=== PATIENT | male | born 1985 | race African-American/Black ===

== ENCOUNTER 2019-12-01 22:58 | Emergency (ER) | payer SELFPAY ==
[2019-12-01] MEDS ORDERED: IBUPROFEN 400 MG TAB ONE (23:27)
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
[2019-12-02 00:59] VITALS: TEMP 98
[2019-12-02 01:01] VITALS: BP 160/85; O2SAT 99
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
== END 2019-12-02 00:35 | disposition home or self-care (01) ==
LOC: ER 22:58
DX: R07.9 Chest pain, unspecified (principal); T22.111A Burn of first degree of right forearm, initial encounter; F17.210 Nicotine dependence, cigarettes, uncomplicated; V49.49XA Driver injured in collision with other motor vehicles in traffic accident, initial encounter
CPT/HCPCS: 71046; 99283

== ENCOUNTER 2024-09-04 09:59 | Inpatient (IN) | payer OTHER ==
[2024-09-04] MEDS ORDERED: NA CHLORIDE 0.9% 2,000 ML ONE (10:06)
--- NOTE | 2024-09-04 10:46 | RAD REPORT ---
EXAMINATION: ONE VIEW CHEST XR CLINICAL INDICATION: AMS TECHNIQUE: Frontal chest projection is submitted. Examination is limited by patient positioning and t echnique. COMPARISON: 12/02/2019 FINDINGS: Mild interstitial prominence is seen, greatest in the left upper lobe. No focal consolidation develop ing bacterial pneumonia is seen. The heart is upper limit of normal in size. No displaced fractures identified. IMPRESSION: Mild interstitial prominence greatest in left upper lobe, likely related to infection.
[2024-09-04 10:51] LABS: Albumin 3.6 g/dL (3.4-5.0); Albumin/Globulin Ratio 0.8 (1.1-1.8); Anion Gap 10.9 mEq/L (5.0-15.0); Bilirubin Total 0.8 mg/dL (0.2-1.0); Globulin 4.6 g/dL (2.3-3.5); Protein, Total 8.2 g/dL (6.4-8.2)
[2024-09-04 10:53] LABS: Potassium 3.9 mEq/L (3.5-5.1)
[2024-09-04] MEDS ORDERED: LORazepam 2 MG/ML VIAL ONE ×3 (11:24→15:57)
[2024-09-04 11:28] LABS: Specific Gravity 1.018 (1.005-1.030); Sqamous Epithelial <5 /HPF (None Seen); Urine Bacteria <20 /HPF (<20); Urine Bilirubin NEGATIVE (Negative); Urine Blood 3+ (OVER) (Negative); Urine Clarity Extremely Turbid (Clear); Urine Color Yellow (Yellow); Urine Culture Reflex Order NOT NEEDED; Urine Glucose NEGATIVE (Negative); Urine Ketones NEGATIVE (Negative); Urine Microscopic Reflex YN ORDER UMIC; Urine Mucus Slight /HPF (None Seen); Urine Nitrite NEGATIVE (Negative); Urine Protein 1+ (Negative); Urine RBC 21-50 /HPF (None Seen); Urine Urobilinogen Normal (Normal); Urine WBC <5 /HPF (<5); Urine pH 5.5 (5.0-7.0)
--- NOTE | 2024-09-04 11:51 | RAD REPORT ---
EXAM: CT brain without contrast HISTORY: AMS COMPARISON: 10/24/2015 TECHNIQUE: Multiple contiguous axial images were obtained and a CT of the brain without contrast. Sag ittal and coronal reformats were performed. One or more of the following dose reduction techniques were used: Automated exposure control, adjust ment of the mA and/or kV according to patient size, and/or iterative reconstruction. FINDINGS: No evidence of hydrocephalus, intracranial hemorrhage, or extra-axial fluid collection. The brain is normal in morphology. No evidence of midline shift or areas of brain edema. The calvarium is intact. The visualized paranasal sinuses and mastoid air cells are essentially clear . IMPRESSION: No evidence of acute intracranial abnormality.
--- NOTE | 2024-09-04 11:52 | RAD REPORT ---
EXAMINATION: CT ABDOMEN AND PELVIS WITHOUT CONTRAST CLINICAL INDICATION: vomiting/diarrhea/AMS/hypotension TECHNIQUE: CT abdomen and pelvis was performed, without IV contrast, as per department protocol. Axia l, sagittal and coronal reconstructions were obtained. One or more of the following dose reduction techniques were used: Automated exposure control, adjustment of the mA and kV according to the patien t size, and iterative reconstruction. Unless otherwise specified, incidental findings do not require dedicated imaging follow-up. COMPARISON: No prior exam. FINDINGS: The lack of intravenous contrast limits the sensitivity of this exam for evaluation of solid visceral organs, vascular structures, and retroperitoneum. LOWER CHEST: The visualized lung bases are clear. LIVER:Mild fatty liver is present. No focal lesion or biliary dilatation is seen. Grossly unremarka ble gallbladder. SPLEEN: Normal size. No focal lesion. PANCREAS: No mass, ductal dilation, or leticia-pancreatic fluid. ADRENALS: Normal; no mass. KIDNEYS AND URETERS: Normal size and contour. No hydronephrosis. URINARY BLADDER: Normal contour. GASTROINTESTINAL TRACT: No evidence of bowel obstruction, significant free fluid, free air or abscess . APPENDIX: Normal appendix. LYMPH NODES: No lymphadenopathy. MUSCULOSKELETAL: No acute or suspicious osseous abnormality. ADDITIONAL FINDINGS: None. IMPRESSION: No acute or concerning abnormalities in the abdomen or pelvis, with evaluation limited by lack of IV contrast. Fatty liver.
[2024-09-04] MEDS ORDERED: NA CHLORIDE 0.9% 250 ML ONE (12:08)
[2024-09-04] MEDS ORDERED: CEFTRIAXONE 1000 MG/VIAL ONE (12:08)
[2024-09-04] MEDS ORDERED: AZITHROMYCIN 500 MG INJ IVPB ONE (12:08)
--- NOTE | 2024-09-04 13:55 | EDPHYS ---
Physician Documentation [facility] Name: Aries Randolph Jr Age: 39 yrs Sex: Male : 1985 Arrival Date: 09/04/2024 Time: 09:59 Bed 3 Private MD: ED Physician Sarabjit Polk HPI: 09/04 11:30 This 39 yrs old Black Male presents to ER via EMS with complaints of Altered Mental rn Status. 11:30 The patient presents with decreased responsiveness. Onset: The symptoms/episode rn began/occurred 2 day(s) ago. Possible causes: unknown. Current symptoms: In the emergency department the patient's symptoms are unchanged from the initial presentation. It is unknown whether or not the patient has had similar symptoms in the past. EMS reports called out by family member for altered mental status and decreased responsiveness. Family member reported flulike symptoms and nausea and vomiting with diarrhea for the last 24 hours with decreased responsiveness today. No seizure activity. Normal glucose per EMS.. Historical: - Allergies: 11:01 oranges; kc6 - Home Meds: 10:04 Unable to obtain [Active]; kc6 - PMHx: 10:04 Hypertensive disorder; kc6 11:01 Diabetes mellitus; Congestive heart failure; kc6 - PSHx: 10:04 Unable to Obtain; kc6 - Immunization history:: Adult Immunizations unknown. - Infectious Disease History:: Denies. - Social history:: Smoking status: unknown. - Unable to obtain history due to: altered mental status. ROS: 11:30 Unable to obtain ROS due to altered mental status, rn Exam: 11:30 Constitutional: This is a well developed, well nourished patient who is awake, rn noncooperative Head/Face: Normocephalic, atraumatic. ENT: Dry mucous membranes Cardiovascular: Tachycardic, regular. Respiratory: Mild tachypnea Abdomen/GI: Soft, mid abdominal tenderness without distention or discoloration MS/ Extremity: Pulses equal, no cyanosis. Neurovascular intact. Full, normal range of motion. Equal circumference. Neuro: Awake, opens eyes, answers some questions, seems selective, moves all 4 extremities with equal strength 12:35 ECG was reviewed by the Attending Physician. rn Vital Signs: 10:02 BP 120 / 62; Pulse 115; Resp 18 S; Temp 100.1(O); Pulse Ox 96% on R/A; Weight 124.28 kg kc6 (M); 10:20 BP 90 / 58; kc6 11:00 BP 110 / 65; Pulse 106; Resp 36 S; Pulse Ox 98% on R/A; kc6 11:47 BP 108 / 73; Pulse 109; Resp 32; Temp 100.6(TE); Pulse Ox 93% on R/A; kc6 12:05 BP 97 / 74; Pulse 100; Resp 21 S; Pulse Ox 91% on R/A; kc6 13:54 BP 122 / 88; Pulse 110; Resp 30 S; Pulse Ox 96% on 3 lpm NC; kc6 14:08 BP 125 / 93; Pulse 112; Resp 28 S; Temp 100.5(TE); Pulse Ox 95% on 3 lpm NC; kc6 15:08 BP 122 / 88; Pulse 110; Resp 30 S; Pulse Ox 96% on 3 lpm NC; kc6 17:06 BP 116 / 90; Pulse 109; Resp 25 S; Temp 102.8(R); Pulse Ox 94% on 3 lpm NC; kc6 17:34 BP 102 / 82; Pulse 110; Resp 27 S; Pulse Ox 100% on 3 lpm NC; kc6 19:43 BP 137 / 76; Pulse 108; Resp 21; Temp 101.2; Pulse Ox 99% on 3 lpm NC; ha1 19:50 BP 113 / 51; Pulse 109; Resp 23; Pulse Ox 98% on 3 lpm NC; ay Procedures: 16:48 Lumbar Puncture: Patient placed in left lateral decubitus position. Prepped with rn Betadine. Draped using sterile technique. Collected 5 ml's of clear fluid. Sample sent to lab. Patient tolerated well. Lumbar Puncture: Opening pressure was low, fluid check 10 to 15 minutes to collect.. Procedural sedation: Pre-procedure assessment: ASA physical classification: I - healthy, no underlying organic disease, Airway assessment: able to maintain airway, can open mouth without difficulty, Monitoring during procedure: gambling monitor, continuous pulse oximetry, nurse at bedside at all times, Medications employed: Ativan, 0.5 mg(s), Ketamine, 100 mg(s), Post-procedure assessment: Respiratory status: even and unlabored, a reversal agent was not used. MDM: 10:00 Medical Screening Exam initiated rn 13:54 Differential Diagnosis: pneumonia, volume depletion, Colitis, enteritis. Data reviewed: rn vital signs, nurses notes, lab test result(s), radiologic studies, CT scan, plain films, and as a result, I will admit patient. Consideration of Admission/Observation Patient was admitted/placed on observation. Escalation of care including admission/observation considered. Counseling: I had a detailed discussion with the patient and/or guardian regarding the historical points, exam findings, and any diagnostic results supporting the discharge/admit diagnosis, lab results, radiology results, the need for further work-up and treatment in the hospital. Response to treatment: the patient's symptoms have markedly improved after treatment, and as a result, I will admit patient. 13:55 ED course: More alert, patient speaks to family in room, elevated lactate, possible rn pneumonia. . 16:50 Management of patient was discussed with the following: Hospitalist: Discussed case rn with hospitalist, they request lumbar puncture to rule out meningitis or encephalopathy. ED course: I personally spent 35 minutes engaged in work directly related to the individual patient's care. This does not include any time spent performing procedures. The patient has been deemed critically ill because of altered mental status, encephalopathy requiring sepsis workup, lumbar puncture, multiple visits with family, review of previous charts and organization of admission to the hospital.. 19:07 ED course: Patient improved, sepsis secondary to influenza/viral source. Sepsis rn reevaluation completed.. 09/04 10:02 Order name: Blood Culture Adult (2) rn 09/04 10:02 Order name: CBC with Diff; Complete Time: 16:32 rn 09/04 10:02 Order name: CMP; Complete Time: 11:12 rn 09/04 10:02 Order name: Lactate w/ 2H reflex if indic.; Complete Time: 11:12 rn 09/04 10:02 Order name: Protime (+inr) rn 09/04 10:02 Order name: Ptt, Activated rn 09/04 10:02 Order name: Urinalysis w/ reflexes; Complete Time: 11:55 rn 09/04 10:56 Order name: Ghost Lactate-NO COLLECT Timer; Complete Time: 13:02 EDMS 09/04 11:12 Order name: ETOH Level; Complete Time: 13:02 rn 09/04 16:35 Order name: Flu; Complete Time: 17:32 [facility] 09/04 16:35 Order name: SARS RAPID; Complete Time: 17:32 [facility] 09/04 16:38 Order name: Stool Culture [facility] 09/04 16:38 Order name: C.difficile [facility] 09/04 16:48 Order name: Fluid Cell Count,Body 09/04 16:48 Order name: Body Fluid Culture 09/04 18:12 Order name: Body Fluid Cell Count; Complete Time: 19:08 EDAL 09/04 10:02 Order name: Chest Single View XRAY; Complete Time: 11:12 rn 09/04 10:02 Order name: CT Head Brain wo Cont; Complete Time: 11:55 rn 09/04 11:37 Order name: Abdomen ; Complete Time: 11:55 EDAL 09/04 10:02 Order name: Accucheck; Complete Time: 10:20 rn 09/04 10:02 Order name: Cardiac monitoring; Complete Time: 10:20 rn 09/04 10:02 Order name: EKG - Nurse/Tech; Complete Time: 10:20 rn 09/04 10:02 Order name: IV Saline Lock - Large Bore; Complete Time: 10:20 rn 09/04 10:02 Order name: Labs collected and sent; Complete Time: 10:20 rn 09/04 10:02 Order name: O2 Per Protocol; Complete Time: 10:04 rn 09/04 10:02 Order name: O2 Sat Monitoring; Complete Time: 10:04 rn 09/04 10:02 Order name: Vital Signs; Complete Time: 10:04 rn 09/04 10:35 Order name: Labs - recollect needed: recollect green top; Complete Time: 11:47 bd 09/04 14:54 Order name: Restraint:Non-Violent; Complete Time: 14:57 rn 09/04 16:32 Order name: Labs - recollect needed: recollect lavender top; Complete Time: 17:04 bd EC:35 Rate is 111 beats/min. Rhythm is regular. QRS [place] is Normal. [place] interval is normal. rn QRS interval is normal. QT interval is normal. No Q waves. T waves are Normal. No ST changes noted. Clinical impression: Sinus tachycardia. Interpreted by me. Reviewed by me. Administered Medications: 10:02 CANCELLED (Duplicate Order): ns 0.9% (30 ml/kg) 30 ml/kg IV at bolus once; Sepsis rn Protocol; to be given as a bolus over 90 minutes 11:00 Drug: NS 0.9% IV 1000 ml IV at 1000 ml once; to be given as a bolus over 60 minutes kc6 Route: IV; Rate: 1000 ml; Site: right antecubital; 12:00 Follow up: Response: No adverse reaction; IV Status: Completed infusion; IV Intake: kc6 1000ml 11:00 Drug: NS 0.9% IV 1000 ml IV at 1000 ml once; to be given as a bolus over 60 minutes kc6 Route: IV; Rate: 1000 ml; Site: right antecubital; 12:00 Follow up: Response: No adverse reaction; IV Status: Completed infusion; IV Intake: kc6 1000ml 11:29 Drug: Ativan IVP 0.5 mg IVP once Route: IVP; Site: right antecubital; kc6 11:47 Follow up: Response: No adverse reaction; Anxiety decreased; RASS: Drowsy (-1) kc6 12:17 Drug: Rocephin IV 1 grams IV at calculated rate once; Given slow IV push per pharmacy kc6 instructions Route: IV; Rate: calculated rate; Site: right antecubital; 12:45 Follow up: Response: No adverse reaction; IV Status: Completed infusion; IV Intake: [id number] 12:17 Drug: Zithromax IVPB 500 mg IVPB once over 1 hrs; mix in 250 mL NS Route: IVPB; Infused kc6 Over: 1 hrs; Site: right antecubital; 13:17 Follow up: Response: No adverse reaction; IV Status: Completed infusion; IV Intake: kc6 250ml 13:51 Drug: Ativan IVP 0.5 mg IVP once Route: IVP; Site: right antecubital; ko1 14:12 Follow up: Response: No adverse reaction; Anxiety decreased; RASS: Drowsy (-1) kc6 16:04 Drug: Ativan IVP 0.5 mg IVP once Route: IVP; Site: right antecubital; kc6 16:30 Follow up: Response: No adverse reaction; Anxiety decreased; RASS: Drowsy (-1) kc6 16:04 Drug: Ketamine IVP 0.2 mg/kg IVP once; Mix in 50 mL NS IV over 10 minutes. Maximum Dose kc6 10 mg {Note: a total of 75mg IV was administered per Dr. Polk in the [id number].} Route: IVP; Site: right antecubital; 16:30 Follow up: Response: No adverse reaction; Anxiety decreased; RASS: Moderate sedation kc6 (-3) 17:07 Drug: Acetaminophen WI Suppository 650 mg WI once Route: WI; kc6 17:30 Follow up: Response: No adverse reaction kc6 19:40 Drug: Acetaminophen WI Suppository 325 mg WI once Route: WI; ha1 19:55 Follow up: Response: No adverse reaction ay Disposition Summary: 09/04/24 13:55 Hospitalization Ordered Notes: Hospitalization Status: Inpatient Admission rn Provider: Kt Polk rn Condition: Stable rn Problem: new rn Symptoms: have improved rn Bed/Room Type: Standard rn Location: Intensive Care Unit(09/04/24 16:47) bd Room Assignment: 1-(09/04/24 16:47) bd Diagnosis - Altered mental status, unspecified rn - Diarrhea, unspecified rn - Pneumonia, unspecified organism rn Forms: - Medication Reconciliation Form rn - SBAR form rn - Leadership Thank You Letter rn Signatures: Dispatcher [employer] EDMS Rajwinder Orozco bd Sarabjit Polk MD MD rn Attema, Lee, MANAGER LONG TERM CARE-C MANAGER LONG TERM CARE-Cla1 Lima Trivedi, RN RN ha1 Meliza Merino RN RN [id number] Lisa Conde, RN RN ko1 Khushboo Davies RN ay Corrections: (The following items were deleted from the chart) 10:02 10:02 NS 0.9% IV (30 ml/kg) 30 ml/kg IV at bolus once; Sepsis Protocol; to be given as rn a bolus over 90 minutes ordered. rn 10:02 10:02 BLOOD CULTURE*+BA.LAB.BRZ ordered. EDMS EDMS 10:02 10:02 CBC+H.LAB.BRZ ordered. EDMS EDMS 10:02 10:02 COMPREHENSIVE METABOLIC PANEL+C.LAB.BRZ ordered. EDMS EDMS 10:02 10:02 LACTATE+C.LAB.BRZ ordered. EDMS EDMS 10:02 10:02 PROTIME (+INR)+COAG.LAB.BRZ ordered. EDMS EDMS 10:02 10:02 PTT, ACTIVATED+COAG.LAB.BRZ ordered. EDMS EDMS 10:02 10:02 Urinalysis+U.LAB.BRZ ordered. EDMS EDMS 10:02 10:02 Chest Single View+RAD.RAD.BRZ ordered. EDMS EDMS 10:02 10:02 Head Brain Wo Cont+CT.RAD.BRZ ordered. EDMS EDMS 10:02 10:02 Abdomen Pelvis W Con+CT.RAD.BRZ ordered. EDMS EDMS 11:02 10:04 Allergies: Unable to obtain; kc6 kc6 11:13 11:13 ETHANOL+C.LAB.BRZ ordered. EDMS EDMS 16:35 16:35 Influenza Screen (A \T\ B)+BA.LAB.BRZ ordered. EDMS EDMS 16:35 16:35 SARS-COV-2 Antigen Rapid+I.LAB.BRZ ordered. EDMS EDMS 16:38 16:38 Stool Culture+BA.LAB.BRZ ordered. EDMS EDMS 16:38 16:38 C.difficile GDH Ag \T\ Toxin AB+LAB.BRZ ordered. EDMS EDMS 16:47 13:55 Telemetry/MedSurg (Inpatient) rn bd 16:47 13:55 rn bd
--- NOTE | 2024-09-04 13:55 | ER ---
Nurse's Notes [facility] Name: Aries Randolph Jr Age: 39 yrs Sex: Male : 1985 Arrival Date: 09/04/2024 Time: 09:59 Bed 3 Private MD: Diagnosis: Altered mental status, unspecified;Diarrhea, unspecified;Pneumonia, unspecified organism Presentation: 09/04 10:02 Chief complaint: EMS states: they were toned out by for flu like symptoms for a kc6 few days with n/v/d and AMS over the last 24hrs. Coronavirus screen: At this time, the client does not indicate any symptoms associated with coronavirus-19. Ebola Screen: No symptoms or risks identified at this time. Initial Sepsis Screen: Does the patient meet any 2 criteria? Altered Mental Status. HR > 90 bpm. Does the patient have a suspected source of infection? No. Patient's initial sepsis screen is negative. Risk Assessment: Do you want to hurt yourself or someone else? Patient reports no desire to harm self or others. Onset of symptoms was September 04, 2024. 10:02 Method Of Arrival: EMS: [facility] kc6 10:02 Acuity: SALOME 2 kc6 Historical: - Allergies: 11:01 oranges; kc6 - Home Meds: 10:04 Unable to obtain [Active]; kc6 - PMHx: 10:04 Hypertensive disorder; kc6 11:01 Diabetes mellitus; Congestive heart failure; kc6 - PSHx: 10:04 Unable to Obtain; kc6 - Immunization history:: Adult Immunizations unknown. - Infectious Disease History:: Denies. - Social history:: Smoking status: unknown. - Unable to obtain history due to: altered mental status. Screenin:21 [facility] ED Fall Risk Assessment (Adult) History of falling in the last 3 months, kc6 including since admission No falls in past 3 months (0 pts) Confusion or Disorientation Yes (5 pts) Intoxicated or Sedated No (0 pts) Impaired Gait No (0 pts) Mobility Assist Device Used No (0 pt) Altered Elimination No (0 pt) Score/Fall Risk Level 3 or more points = High Risk Oriented to surroundings, Maintained a safe environment, Educated pt \T\ family on fall prevention, incl call for assistance when getting out of bed. Abuse screen: Denies threats or abuse. Denies injuries from another. Nutritional screening: No deficits noted. Tuberculosis screening: No symptoms or risk factors identified. Assessment: 10:00 General: Appears distressed, uncomfortable, obese, unkempt, well developed, Behavior is kc6 agitated, restless. Pain: Unable to use pain scale. Patient is disoriented. Neuro: Level of Consciousness is confused, Oriented to none. Cardiovascular: Capillary refill < 3 seconds Rhythm is sinus tachycardia. Respiratory: Airway is patent Trachea midline Respiratory effort is even, unlabored, Respiratory pattern is regular, symmetrical. GI: Abdomen is round Last BM was September 04, 2024. at 11:03. Parent/caregiver reports the patient having diarrhea, nausea, vomiting. : No signs and/or symptoms were reported regarding the genitourinary system. EENT: No signs and/or symptoms were reported regarding the EENT system. Derm: No signs and/or symptoms reported regarding the dermatologic system. Skin is intact, is healthy with good turgor, Skin is pink, warm \T\ dry. Musculoskeletal: No signs and/or symptoms reported regarding the musculoskeletal system. Circulation, motion, and sensation intact. Capillary refill < 3 seconds, Range of motion: intact in all extremities. 11:00 Reassessment: No changes from previously documented assessment. Patient and/or family kc6 updated on plan of care and expected duration. Pain level reassessed. 12:00 Reassessment: No changes from previously documented assessment. Patient and/or family kc6 updated on plan of care and expected duration. Pain level reassessed. 12:15 Reassessment: pt is awake, A\T\O to self and place but not time and situation. kc6 13:00 Reassessment: No changes from previously documented assessment. Patient and/or family kc6 updated on plan of care and expected duration. Pain level reassessed. 13:30 Reassessment: pt is grabbing and kicking at staff, attempting to get out bed while kc6 being cleaned of incontinence. Meghan, SANDRITA at [facility], RN at bedside. MD made aware. 13:45 Reassessment: pt appears to be be getting increasingly agitated and thrashing around in [facility] the bed with and sister at bedside. verbal reassurance given to pt. bed alarm on and pt repositioned in the bed. MD made aware. 14:00 Reassessment: No changes from previously documented assessment. Patient and/or family kc6 updated on plan of care and expected duration. Pain level reassessed. 14:15 Reassessment: Shanna Souza () [phone]. kc6 15:00 Reassessment: No changes from previously documented assessment. Patient and/or family kc6 updated on plan of care and expected duration. Pain level reassessed. 16:04 Reassessment: Patient appears in no apparent distress at this time. No changes from kc6 previously documented assessment. Patient and/or family updated on plan of care and expected duration. Pain level reassessed. 17:06 Reassessment: Patient appears in no apparent distress at this time. No changes from kc6 previously documented assessment. Patient and/or family updated on plan of care and expected duration. Pain level reassessed. 17:22 Reassessment: attempted to call report to ICU. per Gina Santacruz RN they have to kc move a pt out before his bed is ready. 17:52 Reassessment: attempted to call report to ICU. per Omi, they are still in the process kc6 of moving out a pt to accept this one. sage, RN made aware. 18:00 Reassessment: Missy slab depiler operator states that they are having issues running Blue top ss and that they will need a recollect. Asked if phlebotomy could come attempt to obtain, but phlebotomy stated that they would not be able to as they had a difficult time obtaining CBC. 18:06 Reassessment: Patient appears in no apparent distress at this time. No changes from kc6 previously documented assessment. Patient and/or family updated on plan of care and expected duration. Pain level reassessed. 18:30 Reassessment: nurse to nurse report given to Gina Santacruz RN in the ICU. kc6 19:00 Reassessment: report given to SANDRITA Soriano \T\ SANDRITA Amato. informed that pt is pending kc6 recollect on blue top and cdiff collection. verbalized understanding. 19:05 General: Appears uncomfortable, ill, obese, unkempt, Behavior is agitated, restless, ay uncooperative. 19:05 Pain: Unable to use pain scale. Patient is disoriented. FLACC scale score is 0 out of ay 10. Neuro: Level of Consciousness is confused, lethargic, Oriented to none. Cardiovascular: Capillary refill < 3 seconds Patient's skin is warm and dry. Rhythm is sinus tachycardia. Respiratory: Airway is patent Trachea midline Respiratory effort is even, unlabored, Respiratory pattern is regular, symmetrical. GI: Abdomen is round obese. : No signs and/or symptoms were reported regarding the genitourinary system. Arevalo in place. EENT: No signs and/or symptoms were reported regarding the EENT system. Derm: Skin is intact, is healthy with good turgor, Skin is normal. Musculoskeletal: No signs and/or symptoms reported regarding the musculoskeletal system. Capillary refill < 3 seconds. Vital Signs: 10:02 BP 120 / 62; Pulse 115; Resp 18 S; Temp 100.1(O); Pulse Ox 96% on R/A; Weight 124.28 kg kc6 (M); 10:20 BP 90 / 58; kc6 11:00 BP 110 / 65; Pulse 106; Resp 36 S; Pulse Ox 98% on R/A; kc6 11:47 BP 108 / 73; Pulse 109; Resp 32; Temp 100.6(TE); Pulse Ox 93% on R/A; kc6 12:05 BP 97 / 74; Pulse 100; Resp 21 S; Pulse Ox 91% on R/A; kc6 13:54 BP 122 / 88; Pulse 110; Resp 30 S; Pulse Ox 96% on 3 lpm NC; kc6 14:08 BP 125 / 93; Pulse 112; Resp 28 S; Temp 100.5(TE); Pulse Ox 95% on 3 lpm NC; kc6 15:08 BP 122 / 88; Pulse 110; Resp 30 S; Pulse Ox 96% on 3 lpm NC; kc6 17:06 BP 116 / 90; Pulse 109; Resp 25 S; Temp 102.8(R); Pulse Ox 94% on 3 lpm NC; kc6 17:34 BP 102 / 82; Pulse 110; Resp 27 S; Pulse Ox 100% on 3 lpm NC; kc6 19:43 BP 137 / 76; Pulse 108; Resp 21; Temp 101.2; Pulse Ox 99% on 3 lpm NC; ha1 19:50 BP 113 / 51; Pulse 109; Resp 23; Pulse Ox 98% on 3 lpm NC; ay ED Course: 10:00 Patient arrived in ED. rn 10:00 Sarabjit Polk MD is Attending Physician. rn 10:04 Triage completed. kc6 10:04 Arm band placed on. kc6 10:04 Patient has correct armband on for positive identification. Placed in gown. Bed in low kc6 position. Call light in reach. Side rails up X2. lead atg developer on. Pulse ox on. NIBP on. Door closed. Noise minimized. Lights dimmed. Warm blanket given. Pillow given. 10:04 Patient maintains SpO2 saturation greater than 95% on room air. kc6 10:16 Inserted saline lock: 20 gauge in right antecubital area, using aseptic technique. ss Blood collected. Flushed with 10 mL NS. 10:20 Meliza Merino RN is Primary Nurse. kc6 10:26 Chest Single View XRAY In Process Unspecified. EDMS 10:56 One-on-one care X 60 minutes. ss 11:01 Repositioned patient. Bath given. Cleaned of incontinence. Linen changed. kc6 11:01 Arevalo cath inserted, using sterile technique, 18 Fr., by ia, balloon inflated, to kc6 gravity drainage, clamped. urine specimen collected. returned clear yellow urine. Patient tolerated poorly. 11:27 ETOH Level Sent. ko1 11:37 Abdomen In Process Unspecified. EDMS 11:39 CT Head Brain wo Cont In Process Unspecified. EDMS 13:30 Repositioned patient. Cleaned of incontinence. Linen changed. kc6 13:54 Kt Polk MD is Hospitalizing Provider. rn 16:04 Provided Education on: Lumbar Puncture, Procedure Consent. kc6 16:04 One-on-one care X 60 minutes. kc6 16:04 Repositioned patient. Cleaned of incontinence. Linen changed. kc6 16:04 Assist provider with lumbar puncture: Set up LP tray. Performed by Sarabjit Polk MD CSF kc6 is clear. Sample collected. Sample sent to lab. Puncture site dressed with 4X4s, Procedure was successful. Patient tolerated well. 17:04 SARS RAPID Sent. kc6 17:04 Flu Sent. kc6 17:04 Fluid Cell Count,Body Sent. kc6 17:04 Body Fluid Culture Sent. kc6 19:00 Report given to SANDRITA Soriano \T\ SANDRITA Amato. kc6 20:19 Patient admitted, IV remains in place. ay Restraints: 13:54 Non-Violent Restraint: Initial order obtained. September 04, 2024 at 13:54 Staff present kc6 on initiation: Meghan Cardona RN \T\ Lisa Conde RN. Indications for initiating restraints: Actions/Behavior observed: repeated attempts to remove/tamper with lines/tubes/IV med devices \T\ wound dressing, repeated attempts to get up from bed/chair w/o assistance, Confused/disoriented, has difficulty remembering/follow instructions, has impaired decision making, has decreased level of consciousness, unable to follow instructions, Less restrictive alternatives attempted: family at bedside, reoriented to location, decrease environmental stimuli, medicated for pain/anxiety, eliminated unnecessary lines/tubes, lines/tubes covered, medications evaluated, placed on bed alarm, trained sitter in room, placed near Nurse station, performed diversional activities, Alternative interventions: Ineffective. Clinical justification for use: line protection, patient safety, Restraint Status: Soft wrist restraint (Right) started Soft wrist restraint (Left) started Family notification/education Family notification: Spouse/SO notified of restraint application. Family notified of restraint application. Education Performed: Education provided to patient/family/spouse/SO/legally authorized pest control service representative regarding the behaviors that necessitated restraint application and the behaviors that the patient shall demonstrate to be released. Circulation: Warm/dry, capillary refill WNL. Skin integrity: Intact, healthy with good turgor. Signs of injury related to restraint: No injuries noted. Range of Motion performed. Level of distress \T\ agitation: agitated/restless, confused, Hydration/Food: PO fluids provided: tolerated well. Elimination/Hygiene: with urinary catheter, diaper changed. Observed behaviors: Attempting to tamper with airway/lines/wounds. unable to follow instructions. confused/disoriented. repeated attempts get out of bed/chair. Less restrictive alternatives attempted: Family at bedside. Reorient patient. Decrease environmental stimuli. Medicated for pain/anxiety. eliminate unnecessary lines/tubes. cover lines/tubes/wounds. bed alarm activated. Alt interventions: Ineffective, Clinical justification for continued use Line protection. patient safety. Criteria to discontinue restraint not met. Restraint status: Side rails up Continued. Soft wrist restraint (Right) Soft wrist restraint (Left) Cognition: poor judgement, poor safety awareness, impulsive, poor attention/concentration, unable to follow commands, short term memory loss, Assuming responsibility of patient is restraints. Time restraints initiated: September 04, 2024 at 13:54 Circumstances for use: Safety of staff. Safety of patient. Line protection Current patient physical, emotional \T\ behavioral status: confused, agitated/restless, unable to follow commands. 15:54 Non-Violent Restraint: Circulation: Warm/dry, capillary refill WNL. Skin integrity: kc6 Intact, healthy with good turgor. Signs of injury related to restraint: No injuries noted. Range of Motion performed. Level of distress \T\ agitation: agitated/restless, confused, Hydration/Food: PO fluids provided: tolerated well. Elimination/Hygiene: bed bath provided, perineal care performed, with urinary catheter, diaper changed. Observed behaviors: unable to follow instructions. confused/disoriented. Less restrictive alternatives attempted: Family at bedside. Reorient patient. Decrease environmental stimuli. Medicated for pain/anxiety. eliminate unnecessary lines/tubes. cover lines/tubes/wounds. bed alarm activated. Alt interventions: Ineffective, Clinical justification for continued use Line protection. patient safety. Criteria to discontinue restraint not met. Restraint status: Side rails up Continued. Soft wrist restraint (Right) Continued. Soft wrist restraint (Left) Continued. Cognition: poor judgement, poor safety awareness, impulsive, poor attention/concentration, unable to follow commands, short term memory loss. 17:54 Non-Violent Restraint: Circulation: Warm/dry, capillary refill WNL. Skin integrity: kc6 Intact, healthy with good turgor. Signs of injury related to restraint: No injuries noted. Range of Motion patient asleep. Level of distress \T\ agitation: confused, patient asleep, Hydration/Food: patient asleep. Elimination/Hygiene: Patient asleep. perineal care performed, with urinary catheter, diaper changed. Observed behaviors: unable to follow instructions. confused/disoriented. Less restrictive alternatives attempted: Family at bedside. Reorient patient. Decrease environmental stimuli. Medicated for pain/anxiety. eliminate unnecessary lines/tubes. cover lines/tubes/wounds. bed alarm activated. Alt interventions: Ineffective, Clinical justification for continued use Line protection. patient safety. Criteria to discontinue restraint not met. Restraint status: Side rails up Continued. Soft wrist restraint (Right) Continued. Soft wrist restraint (Left) Continued. Cognition: poor judgement, poor safety awareness, impulsive, poor attention/concentration, unable to follow commands, short term memory loss. 19:00 Non-Violent Restraint: Transfer of care of a patient in restraints Report given to: farheen Carey RN \T\ Lima Trivedi RN. 19:30 Non-Violent Restraint: Circulation: Warm/dry, capillary refill WNL. Skin integrity: ay Intact, healthy with good turgor. Signs of injury related to restraint: No injuries noted. Range of Motion performed. Level of distress \T\ agitation: agitated/restless, confused, Elimination/Hygiene: perineal care performed, with urinary catheter, diaper changed. Observed behaviors: unable to follow instructions. confused/disoriented. repeated attempts get out of bed/chair. Less restrictive alternatives attempted: Family at bedside. Reorient patient. Decrease environmental stimuli. Medicated for pain/anxiety. eliminate unnecessary lines/tubes. cover lines/tubes/wounds. Alt interventions: Ineffective, Clinical justification for continued use Line protection. patient safety. Criteria to discontinue restraint not met. Restraint status: Side rails up Continued. Soft wrist restraint (Right) Continued. Soft wrist restraint (Left) Continued. Cognition: poor judgement, poor safety awareness, impulsive, poor attention/concentration, unable to follow commands, short term memory loss, Assuming responsibility of patient is restraints. Circumstances for use: Safety of staff. Safety of patient. Line protection Current patient physical, emotional \T\ behavioral status: confused, agitated/restless, unable to follow commands. Administered Medications: 10:02 CANCELLED (Duplicate Order): ns 0.9% (30 ml/kg) 30 ml/kg IV at bolus once; Sepsis rn Protocol; to be given as a bolus over 90 minutes 11:00 Drug: NS 0.9% IV 1000 ml IV at 1000 ml once; to be given as a bolus over 60 minutes kc6 Route: IV; Rate: 1000 ml; Site: right antecubital; 12:00 Follow up: Response: No adverse reaction; IV Status: Completed infusion; IV Intake: kc6 1000ml 11:00 Drug: NS 0.9% IV 1000 ml IV at 1000 ml once; to be given as a bolus over 60 minutes kc6 Route: IV; Rate: 1000 ml; Site: right antecubital; 12:00 Follow up: Response: No adverse reaction; IV Status: Completed infusion; IV Intake: kc6 1000ml 11:29 Drug: Ativan IVP 0.5 mg IVP once Route: IVP; Site: right antecubital; kc6 11:47 Follow up: Response: No adverse reaction; Anxiety decreased; RASS: Drowsy (-1) kc6 12:17 Drug: Rocephin IV 1 grams IV at calculated rate once; Given slow IV push per pharmacy kc6 instructions Route: IV; Rate: calculated rate; Site: right antecubital; 12:45 Follow up: Response: No adverse reaction; IV Status: Completed infusion; IV Intake: [id number] 12:17 Drug: Zithromax IVPB 500 mg IVPB once over 1 hrs; mix in 250 mL NS Route: IVPB; Infused kc6 Over: 1 hrs; Site: right antecubital; 13:17 Follow up: Response: No adverse reaction; IV Status: Completed infusion; IV Intake: kc6 250ml 13:51 Drug: Ativan IVP 0.5 mg IVP once Route: IVP; Site: right antecubital; ko1 14:12 Follow up: Response: No adverse reaction; Anxiety decreased; RASS: Drowsy (-1) kc6 16:04 Drug: Ativan IVP 0.5 mg IVP once Route: IVP; Site: right antecubital; kc6 16:30 Follow up: Response: No adverse reaction; Anxiety decreased; RASS: Drowsy (-1) kc6 16:04 Drug: Ketamine IVP 0.2 mg/kg IVP once; Mix in 50 mL NS IV over 10 minutes. Maximum Dose kc6 10 mg {Note: a total of 75mg IV was administered per Dr. Polk in the [id number].} Route: IVP; Site: right antecubital; 16:30 Follow up: Response: No adverse reaction; Anxiety decreased; RASS: Moderate sedation kc6 (-3) 17:07 Drug: Acetaminophen LA Suppository 650 mg LA once Route: LA; kc6 17:30 Follow up: Response: No adverse reaction kc6 19:40 Drug: Acetaminophen LA Suppository 325 mg LA once Route: LA; ha1 19:55 Follow up: Response: No adverse reaction ay Medication: 20:19 VIS not applicable for this client. ay Intake: 12:00 IV: 1000ml; Total: 1000ml. kc6 12:00 IV: 1000ml; Total: 2000ml. kc6 12:45 IV: 10ml; Total: 2010ml. kc6 13:17 IV: 250ml; Total: 2260ml. kc6 Outcome: 13:55 Decision to Hospitalize by Provider. rn 19:55 Instructed on the need for admit, ay 19:55 Patient left the ED. ay 19:55 Admitted to ICU accompanied by nurse, via stretcher, room 1, with oxygen, on monitor, ay with chart, 19:55 Condition: stable ay Signatures: Dispatcher [employer] EDMS Sarabjit Polk MD MD rn Blanchard, Shelby RN Lima Webster RN RN Meliza Fall RN RN kc6 Oliver, Kathy, RN RN koKhushboo Black RN RN ay Corrections: (The following items were deleted from the chart) 11:02 10:04 Allergies: Unable to obtain; kc6 kc6 11:51 11:47 BP 108 / 73; Pulse 109bpm; Resp 32bpm; Pulse Ox 93% RA; kc6 kc6 14:17 14:08 BP 125 / 93; Pulse 112bpm; Resp 28bpm; Spontaneous; Pulse Ox 95% 3 lpm Nasal kc6 Cannula; kc6 15:01 13:30 Reassessment: pt appears to be be getting increasingly agitate and thrashing kc6 around in the bed with and sister at bedside. verbal reassurance given. made aware. kc6 15:02 13:30 Reassessment: pt appears to be be getting increasingly agitated and thrashing kc6 around in the bed with and sister at bedside. verbal reassurance given to pt. bed alarm on and pt repositioned in the bed. made aware. kc6 15:02 14:58 Reassessment: pt is grabbing and kicking at staff, attempting to get out bed kc6 while being cleaned of incontinence. SANDRITA Christianson at [facility], RN at bedside kc6 15:02 13:30 Reassessment: pt is grabbing and kicking at staff, attempting to get out bed kc6 while being cleaned of incontinence. SANDRITA Christianson at [facility], RN at bedside kc6 17:07 17:06 BP 116 / 90; Pulse 109bpm; Resp 25bpm; Spontaneous; Pulse Ox 94% 3 lpm Nasal kc6 Cannula; kc6 19:33 17:22 Reassessment: attempted to call report to ICU. per SANDRITA Sainz they have to move [facility] a pt out before his bed is ready kc6 19:33 18:30 Reassessment: nurse to nurse report given to SANDRITA Sainz in the ICU [facility] kc 19:34 17:52 Reassessment: attempted to call report to ICU. per Omi, they are still in the [facility] process of moving out a pt to accept this one. charge, rn made aware. [facility] : 20:19 Admitted to ICU accompanied by nurse, via stretcher, with oxygen, on monitor, ay with chart, ay : 20:19 Condition: stable ay ay : 20:19 Instructed on the need for admit, ay ay 20: 20:21 Patient left the ED. ay ay
[2024-09-04 15:47] LABS: Absolute Lymphocytes (CBC) 3.3 K/uL (0.7-4.9); Absolute Monocytes 0.8 K/uL (0.1-1.3); Basophils % 0.3 % (0-1.3); Eosinophils % 0.1 % (0-4.4); Hematocrit 42.7 % (39.6-49.0); Hemoglobin 13.8 g/dL (13.6-17.9); MCH 28.7 pg (27.0-35.0); MCHC 32.3 g/dL (32.0-36.0); MCV 88.8 fL (80-100); MPV 11.9 fL (7.6-11.3); Monocytes % 7.7 % (3.3-12.3); Neutrophils % 58.9 % (41.7-73.7); Nucleated Red Blood Cells % 0.1 % (0-0); Platelets 113 thou/uL (152-406); RBC Red Blood Cell Count 4.81 M/uL (4.33-5.43); Red Cell Distribution Width 13.8 % (12.1-15.2)
[2024-09-04] MEDS ORDERED: KETAMINE HCL IN 0.9 % NACL 50 MG/5 ML SYRINGE IV ONE ×2 (15:56→16:31)
[2024-09-04] MEDS ORDERED: NA CHLORIDE 0.9% 50 ML ONE (15:57)
[2024-09-04] MEDS ORDERED: ACETAMINOPHEN 650MG/RECT SUPP PR ONE (16:53)
--- NOTE | 2024-09-04 16:57 | P.HP ---
Certification for Inpatient Patient admitted to: Inpatient With expected LOS: >2 Midnights Patient will require the following post-hospital care: None Practitioner: I am a practitioner with admitting privileges, knowledge of patient current condition, hospital course, and medical plan of care. Services: Services provided to patient in accordance with Admission requirements found in Title 42 Section 412.3 of the Code of Federal Regulations Patient History Date of Service: 09/05/24 Reason for admission: AMS, pneumonia History of Present Illness: 39-year-old male with history of diabetes, hypertension, CHF presents emergency department chief complaint of altered mental status. His reports that over the course of the last 24 to 36 hours he had been having large amounts of diarrhea, vomiting and been becoming confused. He was incontinent of urine and stool at home and had been becoming progressively more altered throughout the day. For that reason he is brought to the emergency department. When he arrived to the emergency department he was lethargic, confused, oriented x 1-2. His labs were significant for a white blood cell count of 10.1 platelets 113 sodium 135 creatinine 1.75 GFR 50 glucose 179 lactic acid 3.4 AST 386 ALT [address] of the abdomen pelvis was performed which revealed no acute or concerning abnormalities in the abdomen or pelvis, does show fatty liver. CT of the head was negative for acute findings, chest x-ray showed mild interstitial prominence greatest in the left upper lobe likely related to infection. Given patient's significant altered mental status and lack of clear explanation lumbar puncture was also performed, spinal fluid was clear and is pending interpretation. Allergies No Known Allergies Allergy (Unverified 09/04/24 21:55) Home Medications: NK [No Home Meds] 09/04/24 - Past Medical/Surgical History -: CHF -: Diabetes -: Hypertension Psychosocial/ Personal History: Patient lives at home with his , works at [employer] - Family History Family History: Reviewed- Non-Contributory - Social History Alcohol use: No CD- Drugs: No Caffeine use: Yes Place of Residence: Home Review of Systems 10-point ROS is otherwise unremarkable Gastrointestinal: Nausea, Vomiting Neurological: Confusion Physical Examination - Physical Exam General: Confused (Drowsy) HEENT: Atraumatic, PERRLA, Mucous membr. moist/pink, EOMI, Sclerae nonicteric Neck: Supple, 2+ carotid pulse no bruit, No LAD, Without JVD or thyroid abnormality Respiratory: Clear to auscultation bilaterally, Normal air movement Cardiovascular: Regular rate/rhythm, Normal S1 S2 Gastrointestinal: Normal bowel sounds, No tenderness Musculoskeletal: No tenderness Integumentary: No rashes Neurological: Normal gait, Normal speech, Normal strength at 5/5 x4 extr, Normal tone, Normal affect Lymphatics: No axilla or inguinal lymphadenopathy - Studies Laboratory Data (last 24 hrs) 09/04/24 09/04/24 10:16 10:16 WBC 10.10 Hgb 13.8 Hct 42.7 Plt Count 113 L Sodium 135 L Potassium 3.9 BUN 11 Creatinine 1.75 H Glucose 179 H Total Bilirubin 0.8 AST 386 H ALT 152 H Alkaline Phosphatase 78 Assessment and Plan - Plan Assessment: Severe sepsis secondary to influenza A/viral Metabolic encephalopathy secondary to above Acute kidney injury Transaminitis History of diabetes mellitus type 2noncompliant History of CHFunknown EF History of hypertension Plan: Severe sepsis secondary to influenza A/viral Metabolic encephalopathy secondary to above Positive for influenza A Patient with profuse watery diarrhea Confused/agitated Will order Tamiflu but likely unable to take by mouth for now Continue broad-spectrum antibiotics given concern for pneumonia, profuse diarrhea Reevaluate antibiotics after cultures return Pulmonary consult Acute kidney injury Continue IV fluids Nephrology consult Transaminitis CT abdomen pelvis performed negative for acute findings, trend CMP History of diabetes mellitus type 2noncompliant History of CHFunknown EF History of hypertension Patient noncompliant with medication for at least the last few months per DVT PPX: Heparin subcu Code status:full Discharge Plan: Home Plan to discharge in: Greater than 2 days - Advance Directives Does patient have a Living Will: No Does patient have a Durable POA for Healthcare: No - Code Status/Comfort Care Code Status Assessed: Yes (Full code) Critical Care: No Time Spent Managing Pts Care (In Minutes): 62
[2024-09-04] MEDS: VANCOMYCIN 1 GM in NA CHLORIDE 0.9% 250 ML IVPB SCH (17:22)
[2024-09-04] MEDS ORDERED: ONDANSETRON 4 MG/2 ML VIAL IV PRN (17:22)
[2024-09-04] MEDS ORDERED: ACETAMINOPHEN 325 MG TABLET PO PRN (17:22)
[2024-09-04 17:23] LABS: SARS-CoV-2 Antigen CONTROL BLUE LINE VIS/BG OK; SARS-CoV-2 Antigen Rapid Res Negative (Negative)
[2024-09-04] MEDS ORDERED: D10W 125 ML IV PRN (17:30)
[2024-09-04] MEDS ORDERED: GLUCAGON 1 MG/VIAL IM PRN (17:30)
[2024-09-04 18:11] LABS: Appearance CLEAR (CLEAR); Body Fluid Source CSF; Color of Supernate Not Xanthochromic (Not Xantho); Color of fluid Colorless (COLORLESS); Tube # #2
[2024-09-04 18:12] LABS: Body Fluid WBC 20 /mm^3
[2024-09-04 18:50] LABS: Body Fluid Lymphocytes 86 %
[2024-09-04 18:51] LABS: Fluid Total Cells Count 100
[2024-09-04] MEDS ORDERED: ACETAMINOPHEN 325 MG/SUPP PR ONE (19:47)
[2024-09-04] MEDS: LORazepam 2 MG/ML VIAL IV PRN (20:19)
[2024-09-04] MEDS: NA CHLORIDE 0.9% 1,000 ML IV SCH (20:37)
[2024-09-04] MEDS: INSULIN REGULAR (HUMAN) 100 UNIT/ML SQ SCH (20:58)
[2024-09-04] MEDS: METRONIDAZOLE 500mg IVPB 500 MG/100 ML BAG IV SCH (20:59)
[2024-09-04] MEDS: HEPARIN 5000 UNIT/ML 1 ML VIAL SQ SCH (20:59)
[2024-09-04] MEDS: OSELTAMIVIR 75 MG CAP PO SCH (21:00)
[2024-09-04] MEDS: CEFEPIME 2 GM in NA CHLORIDE 0.9% 100 ML IV SCH (21:10)
[2024-09-04 21:11] LABS: PT Prothrombin Time 15.4 SECONDS (9.4-12.5); PTT, Activated Partial Thromb 33.1 SECONDS (24.3-36.9); Protime INR 1.39
[2024-09-04] MEDS: VANCOMYCIN 3 GM in NA CHLORIDE 0.9% 500 ML IVPB ONE (21:43)
[2024-09-04] MEDS: ACETAMINOPHEN 650MG/RECT SUPP PR PRN (23:44)
[2024-09-05] MEDS: DEXMEDETOMIDINE HCL 200 MCG in NA CHLORIDE 0.9% 98 ML IV SCH (00:05)
[2024-09-05] MEDS: KETOROLAC 30 MG/ML INJ IV PRN (01:15)
[2024-09-05] MEDS: FLU (Fluarix Triv) TS24-25(6MOS UP)/PF 45 MCG/0.5 ML Syringe IM ONE (07:45)
--- NOTE | 2024-09-05 07:48 | RAD REPORT ---
EXAMINATION: ONE VIEW CHEST XR CLINICAL INDICATION: PICC Line Insertion TECHNIQUE: Frontal chest projection is submitted. Examination is limited by patient positioning and t echnique. COMPARISON: No prior exam. FINDINGS: Right-sided PICC line is in place with tip in the SVC. Bilateral pulmonary opacities are noted, mild. The heart is upper limit normal in size. IMPRESSION: Right PICC line has tip in the SVC without complication seen.
[2024-09-05] MEDS: Mupirocin NASAL 2 APPL/1 GM TUBE NAS SCH (08:11)
[2024-09-05 08:24] LABS: Absolute Lymphocytes (CBC) 1.5 K/uL (0.7-4.9); Absolute Monocytes 0.5 K/uL (0.1-1.3); Basophils % 0.2 % (0-1.3); Eosinophils % 0.1 % (0-4.4); Hematocrit 38.6 % (39.6-49.0); Hemoglobin 12.6 g/dL (13.6-17.9); Lymphocytes % 16.7 % (15.3-44.8); MCH 28.7 pg (27.0-35.0); MCHC 32.6 g/dL (32.0-36.0); Monocytes % 5.4 % (3.3-12.3); Neutrophils % 77.6 % (41.7-73.7); Nucleated Red Blood Cells % 0.2 % (0-0); Platelets 88 thou/uL (152-406); RBC Red Blood Cell Count 4.38 M/uL (4.33-5.43); Red Cell Distribution Width 14.4 % (12.1-15.2)
[2024-09-05 08:46] LABS: Albumin 3.4 g/dL (3.4-5.0); Albumin/Globulin Ratio 0.9 (1.1-1.8); Anion Gap 6.2 mEq/L (5.0-15.0); Bilirubin Total 0.4 mg/dL (0.2-1.0); Globulin 3.9 g/dL (2.3-3.5); Potassium 5.2 mEq/L (3.5-5.1); Protein, Total 7.3 g/dL (6.4-8.2); Thyroid Stimulating Hormone 1.72 uIU/mL (0.358-3.740)
--- NOTE | 2024-09-05 09:04 | P.PN ---
Date of Service: 09/05/24 Subjective: Confused/agitated overnight Started on Precedex Still drowsy/lethargic this morning Reportedly was oriented x 2 last night but agitated requiring sedation No other acute events overnight Still with large amount of watery diarrhea ROS: 10 point ROS as noted above, otherwise negative Physical exam GEN: Lethargic/confused, NAD HEENT: Normal conjunctiva, sclera anicteric CV: Regular rate and rhythm, no edema Pulm: Nonlabored respirations on room air ABD: Soft, nontender, nondistended MSK: No joint tenderness Integumentary: No rashes Neuro: Lethargic Vitals reviewed Assessment: Severe sepsis secondary to influenza A/viral Metabolic encephalopathy secondary to above Acute kidney injury Transaminitis History of diabetes mellitus type 2noncompliant History of CHFunknown EF History of hypertension Plan: Severe sepsis secondary to influenza A/viral Metabolic encephalopathy secondary to above Positive for influenza A Patient with profuse watery diarrhea Confused/agitated Will order Tamiflu but likely unable to take by mouth for now Continue broad-spectrum antibiotics given concern for pneumonia, profuse diarrhea Reevaluate antibiotics after cultures return Pulmonary consult C. difficile pending Acute kidney injury Continue IV fluids Nephrology consult Transaminitis CT abdomen pelvis performed negative for acute findings, trend CMP Some improvement in LFTs overnight History of diabetes mellitus type 2noncompliant History of CHFunknown EF History of hypertension Patient noncompliant with medication for at least the last few months per DVT PPX: Heparin subcu Code status:full Discharge Plan: Home Plan to discharge in: Greater than 2 days <Jose R Bishop - Last Filed: 09/05/24 09:02> seen and examined on rounds this AM. plan discussed with CLEANING TECHNICIAN Dario as noted above CSF clear, no evidence of meningitis flu a + encephalopathy ativan and precedex given last night, hold sedation to see how patient is doing continues with fever inflammatory markers elevated continues with loose stool continue icu level of care <Kt Polk - Last Filed: 09/05/24 21:01>
--- NOTE | 2024-09-05 09:08 | P.CNS ---
Date of Consult: 09/05/24 Reason for Consult: RAYO Requesting Physician: Kt Polk Chief Complaint: AMS, pneumonia History of Present Illness: 39-year-old male with history of diabetes, hypertension, CHF presents emergency department chief complaint of altered mental status. His reports that over the course of the last 24 to 36 hours he had been having large amounts of diarrhea, vomiting and been becoming confused. He was incontinent of urine and stool at home and had been becoming progressively more altered throughout the day. For that reason he is brought to the emergency department. When he arrived to the emergency department he was lethargic, confused, oriented x 1-2. His labs were significant for a white blood cell count of 10.1 platelets 113 sodium 135 creatinine 1.75 GFR 50 glucose 179 lactic acid 3.4 AST 386 ALT [address] of the abdomen pelvis was performed which revealed no acute or concerning abnormalities in the abdomen or pelvis, does show fatty liver. CT of the head was negative for acute findings, chest x-ray showed mild interstitial prominence greatest in the left upper lobe likely related to infection. Given patient's significant altered mental status and lack of clear explanation lumbar puncture was also performed, spinal fluid was clear and is pending interpretation. [id number] 11:30 This 39 yrs old Black Male presents to ER via EMS with complaints of Altered Mental rn Status. 11:30 The patient presents with decreased responsiveness. Onset: The symptoms/episode rn began/occurred 2 day(s) ago. Possible causes: unknown. Current symptoms: In the emergency department the patient's symptoms are unchanged from the initial presentation. It is unknown whether or not the patient has had similar symptoms in the past. EMS reports called out by family member for altered mental status and decreased responsiveness. Family member reported flulike symptoms and nausea and vomiting with diarrhea for the last 24 hours with decreased responsiveness today. No seizure activity. Normal glucose per EMS.. Allergies No Known Allergies Allergy (Unverified 09/04/24 21:55) Home Medications: NK [No Home Meds] 09/04/24 - Past Medical/Surgical History Diabetic: Yes -: CHF -: Diabetes -: Hypertension Psychosocial/ Personal History: Patient lives at home with his , works at [employer] - Social History Smoking Status: Unknown if ever smoked Alcohol use: No CD- Drugs: No Caffeine use: Yes Place of Residence: Home Review of Systems is unable to be obtained (AMS) Physical Examination Temp Pulse Resp BP Pulse Ox 98.3 F 88 22 H 90/58 L 100 09/05/24 08:00 09/05/24 08:00 09/05/24 08:00 09/05/24 08:00 09/05/24 08:00 General: In no apparent distress HEENT: Atraumatic Neck: Supple Respiratory: Diminished Cardiovascular: No edema, Regular rate/rhythm Gastrointestinal: Non-distended, No guarding Musculoskeletal: No clubbing, No contractures Integumentary: No rashes, No cyanosis Laboratory Data (last 24 hrs) 09/04/24 09/04/24 10:16 10:16 WBC 10.10 Hgb 13.8 Hct 42.7 Plt Count 113 L Sodium 135 L Potassium 3.9 BUN 11 Creatinine 1.75 H Glucose 179 H Total Bilirubin 0.8 AST 386 H ALT 152 H Alkaline Phosphatase 78 Imagings Data: [id number] EXAMINATION: ONE VIEW CHEST XR CLINICAL INDICATION: PICC Line Insertion TECHNIQUE: Frontal chest projection is submitted. Examination is limited by patient positioning and technique. COMPARISON: No prior exam. FINDINGS: Right-sided PICC line is in place with tip in the SVC. Bilateral pulmonary opacities are noted, mild. The heart is upper limit normal in size. IMPRESSION: Right PICC line has tip in the SVC without complication seen. [id number] EXAM: CT brain without contrast HISTORY: AMS COMPARISON: 10/24/2015 TECHNIQUE: Multiple contiguous axial images were obtained and a CT of the brain without contrast. Sagittal and coronal reformats were performed. One or more of the following dose reduction techniques were used: Automated exposure control, adjustment of the mA and/or kV according to patient size, and/or iterative reconstruction. FINDINGS: No evidence of hydrocephalus, intracranial hemorrhage, or extra-axial fluid collection. The brain is normal in morphology. No evidence of midline shift or areas of brain edema. The calvarium is intact. The visualized paranasal sinuses and mastoid air cells are essentially clear. IMPRESSION: No evidence of acute intracranial abnormality. [id number] EXAMINATION: ONE VIEW CHEST XR CLINICAL INDICATION: AMS TECHNIQUE: Frontal chest projection is submitted. Examination is limited by pa tient positioning and technique. COMPARISON: 12/02/2019 FINDINGS: Mild interstitial prominence is seen, greatest in the left upper lobe. No focal consolidation developing bacterial pneumonia is seen. The heart is upper limit of normal in size. No displaced fractures identified. IMPRESSION: Mild interstitial prominence greatest in left upper lobe, likely related to infection. [id number] EXAMINATION: CT ABDOMEN AND PELVIS WITHOUT CONTRAST CLINICAL INDICATION: vomiting/diarrhea/AMS/hypotension TECHNIQUE: CT abdomen and pelvis was performed, without IV contrast, as per department protocol. Axial, sagittal and coronal reconstructions were obtained. One or more of the following dose reduction techniques were used: Automated exposure control, adjustment of the mA and kV according to the patient size, and iterative reconstruction. Unless otherwise specified, incidental findings do not require dedicated imaging follow-up. COMPARISON: No prior exam. FINDINGS: The lack of intravenous contrast limits the sensitivity of this exam for evaluation of solid visceral organs, vascular structures, and retroperitoneum. LOWER CHEST: The visualized lung bases are clear. LIVER:Mild fatty liver is present. No focal lesion or biliary dilatation is seen. Grossly unremarkable gallbladder. SPLEEN: Normal size. No focal lesion. PANCREAS: No mass, ductal dilation, or leticia-pancreatic fluid. ADRENALS: Normal; no mass. KIDNEYS AND URETERS: Normal size and contour. No hydronephrosis. URINARY BLADDER: Normal contour. GASTROINTESTINAL TRACT: No evidence of bowel obstruction, significant free fluid, free air or abscess. APPENDIX: Normal appendix. LYMPH NODES: No lymphadenopathy. MUSCULOSKELETAL: No acute or suspicious osseous abnormality. ADDITIONAL FINDINGS: None. IMPRESSION: No acute or concerning abnormalities in the abdomen or pelvis, with evaluation limited by lack of IV contrast. Fatty liver. Conclusions/Impression: Stage II RAYO may be due to hypovolemia with hypotension but the hematuria is concerning for Acute GN CKD with Proteinuria suspected but the stage is unclear Microscopic Hematuria -No NSAIDs -Continue IVF -IVF bolus as ordered Hyponatremia -Continue IVF Hyperkalemia -Continue IVF Septic Shock/ Influenza A Hypotension -Continue IVF -IVF bolus as ordered -Continue Abx DM II with CKD -RISS Elevated LFTs -Continue IVF -IVF bolus as ordered Anemia in chronic illness -Monitor H&H Toxic Metabolic Encephalopathy -Continue supportive care Hospitalist and ER notes reviewed Thank you kindly for the consultation
[2024-09-05] MEDS ORDERED: NACHLORIDE 0.45% 1,000 ML IV SCH (09:30)
[2024-09-05] MEDS ORDERED: VANCOMYCIN 2 GM in NA CHLORIDE 0.9% 500 ML IVPB SCH (10:00)
[2024-09-05] MEDS: Ringers Lactate 1,000 ML IV ONE (10:08)
[2024-09-05 10:25] LABS: Band Neutrophils 12 % (0-1); Differential Total Cells Count 100; Lymphocytes 21 % (15-42); Monocytes 7 % (0-10); Platelet Estimate DECR; Segmented Neutrophils 60 % (40-80)
[2024-09-05 10:26] LABS: Blood Morphology Comment NOT SEEN (NOT SEEN)
--- NOTE | 2024-09-05 12:28 | P.CNS ---
Date of Consult: 09/05/24 Reason for Consult: Sepsis hypotension Chief Complaint: AMS, pneumonia History of Present Illness: Patient is 39 years of age unresponsive and was apparently began 2 days ago history available from the patient he reported a flulike symptom nausea vomiting diarrhea. Mental status And admitted with multiorgan failure renal failure abnormal LFTs Allergies No Known Allergies Allergy (Unverified 09/04/24 21:55) Home Medications: NK [No Home Meds] 09/04/24 - Past Medical/Surgical History -: CHF -: Diabetes -: Hypertension Psychosocial/ Personal History: Patient lives at home with his , works at [employer] - Social History Smoking Status: Unknown if ever smoked Alcohol use: No CD- Drugs: No Caffeine use: Yes Place of Residence: Home Review of Systems is unable to be obtained Physical Examination Temp Pulse Resp BP Pulse Ox 98.6 F 102 H 22 H 108/68 96 09/05/24 09:00 09/05/24 11:00 09/05/24 11:00 09/05/24 11:00 09/05/24 11:00 General: Unresponsive Respiratory: Clear to auscultation bilaterally Cardiovascular: No edema, Regular rate/rhythm, Normal S1 S2 Laboratory Data (last 24 hrs) 09/04/24 10:16 WBC 10.10 Hgb 13.8 Hct 42.7 Plt Count 113 L - Problems (1) Sepsis Current Visit: Yes Status: Acute Plan: Patient is 39 years of age admitted with altered mental status after flulike illness shows. Mild lymphocytosis his procalcitonin level is elevated renal function liver function tests including lactic acid are all abnormal and a for atypical coverage with the levofloxacin add some hydrocortisone is no evidence of bacterial meningitis CT scan is also negative add thiamine blood pressure is low may need vasopressors Qualifiers: Sepsis acute organ dysfunction status: unspecified
[2024-09-05] MEDS: Levofloxacin 750mg IV 750 MG/150 ML BAG IV SCH (12:52)
[2024-09-05] MEDS: HYDROCORTISONE SUC 100 MG INJ IV SCH (12:52)
[2024-09-05] MEDS: THIAMINE 200 MG/2 ML INJ IVP SCH (12:52)
[2024-09-05 14:41] LABS: Anion Gap 7.8 mEq/L (5.0-15.0); Potassium 4.8 mEq/L (3.5-5.1)
[2024-09-05] MEDS: VANCOMYCIN 2 GM in NA CHLORIDE 0.9% 500 ML IVPB SCH (20:17)
[2024-09-05] MEDS: DEXMEDETOMIDINE HCL 1,000 MCG in NA CHLORIDE 0.9% 490 ML IV SCH (23:15)
[2024-09-06 05:42] LABS: Absolute Lymphocytes (CBC) 0.9 K/uL (0.7-4.9); Absolute Monocytes 0.2 K/uL (0.1-1.3); Absolute Neutrophil 6.5 K/uL (1.8-8.0); Basophils % 0.1 % (0-1.3); Hematocrit 36.5 % (39.6-49.0); Lymphocytes % 11.4 % (15.3-44.8); MCH 28.7 pg (27.0-35.0); MCHC 32.8 g/dL (32.0-36.0); MCV 87.5 fL (80-100); MPV 11.5 fL (7.6-11.3); Monocytes % 2.4 % (3.3-12.3); Neutrophils % 86.1 % (41.7-73.7); Nucleated Red Blood Cells % 0.2 % (0-0); Platelets 62 thou/uL (152-406); RBC Red Blood Cell Count 4.17 M/uL (4.33-5.43); Red Cell Distribution Width 14.7 % (12.1-15.2)
[2024-09-06 05:48] LABS: Specific Gravity 1.007 (1.005-1.030); Sqamous Epithelial <5 /HPF (None Seen); Urine Bacteria <20 /HPF (<20); Urine Bilirubin NEGATIVE (Negative); Urine Blood 3+ (OVER) (Negative); Urine Clarity Extremely Turbid (Clear); Urine Color Colorless (Yellow); Urine Crystals Unidentified Few /HPF (None Seen); Urine Culture Reflex Order NOT NEEDED; Urine Glucose NEGATIVE (Negative); Urine Ketones NEGATIVE (Negative); Urine Micro Reflex YN NO BILL NO MICROSCOPIC; Urine Mucus Slight /HPF (None Seen); Urine Nitrite NEGATIVE (Negative); Urine Protein 1+ (Negative); Urine RBC >50 /HPF (None Seen); Urine Urobilinogen Normal (Normal); Urine pH 5.5 (5.0-7.0)
[2024-09-06 06:24] LABS: MA/CREAT RATIO 206.1 (< 30.0); UR MICROALBUMIN 10.1 mg/dL (< 1.9); UR PROTEIN 45.7 mg/dL (<11.9); Urine Protein/Creatinine Ratio 0.93 ratio (<0.15)
[2024-09-06 06:47] LABS: PT Prothrombin Time 12.6 SECONDS (9.4-12.5); PTT, Activated Partial Thromb 34.6 SECONDS (24.3-36.9); Protime INR 1.13
[2024-09-06 06:54] LABS: Albumin 2.9 g/dL (3.4-5.0); Albumin/Globulin Ratio 0.7 (1.1-1.8); Anion Gap 9.6 mEq/L (5.0-15.0); Bilirubin Total 0.4 mg/dL (0.2-1.0); Globulin 4.4 g/dL (2.3-3.5); Magnesium 1.8 mg/dL (1.6-2.4); Phosphorus 2.7 mg/dL (2.5-4.9); Protein, Total 7.3 g/dL (6.4-8.2); Uric Acid 8.3 mg/dL (3.5-7.2)
[2024-09-06 07:00] LABS: Potassium 6.6 mEq/L (3.5-5.1)
[2024-09-06] MEDS: D50W 25 GM/50 ML SYRINGE IV ONE (07:36)
[2024-09-06] MEDS: MAGNESIUM SULFATE 1 gm IVPB 1 GM/100 ML BAG IV ONE (07:37)
[2024-09-06] MEDS: INSULIN REGULAR (HUMAN) 100 UNIT/ML IV ONE (07:38)
--- NOTE | 2024-09-06 09:12 | P.PN ---
Date of Service: 09/06/24 Subjective: obtunded, not responsive to pain, back on precedex gtt this morning, was given ativan last night Hyperkalemia, treated with insulin/D50w ROS: 10 point ROS as noted above, otherwise negative Physical exam GEN: obtunded, NAD HEENT: Normal conjunctiva, sclera anicteric CV: RRR, no edema Pulm: Nonlabored respirations, on room air ABD: Soft on palpation, ND/NT, hypoactive bowel sounds MSK: No joint tenderness Integumentary: No rashes Neuro: obtunded Vitals reviewed Assessment: Severe sepsis secondary to influenza A/viral Metabolic encephalopathy secondary to above Acute kidney injury Hyperkalemia Transaminitis History of diabetes mellitus type 2noncompliant History of CHFunknown EF History of hypertension Plan: Severe sepsis secondary to influenza A/viral Metabolic encephalopathy secondary to above Positive for influenza A Patient with profuse watery diarrhea Confused/agitated Will order Tamiflu but likely unable to take by mouth for now Continue broad-spectrum antibiotics given concern for pneumonia, profuse diarrhea Reevaluate antibiotics after cultures return Pulmonary consult C. difficile pending Procal, CK, and CRP significantly elevated Spinal fluid profile not consistent with bacterial meningitis Acute kidney injury Continue IV fluids Nephrology consult Hyperkalemia K 6.6, repeat 6.1 Insulin 10 units with D50 gm IV Will monitor in AM labs Transaminitis CT abdomen pelvis performed negative for acute findings, trend CMP Some improvement in LFTs overnight History of diabetes mellitus type 2noncompliant History of CHFunknown EF History of hypertension Patient noncompliant with medication for at least the last few months per DVT PPX: Heparin subcu Code status:full Discharge Plan: Home Plan to discharge in: Greater than 2 days <Sandra Manuel - Last Filed: 09/06/24 19:05> DOS (09/06/24) Patient seen and examined on rounds this morning with HEALTH CENTER MANAGER Kaleb. I personally spent 35 minutes of critical care time managing the patient's care at bedside, reviewing results, and discussing with consultants. I performed a substantial part of the MDM during this patient's care today as noted above in the plan of care. I agree with plan of care as noted above with the following additions / corrections: ativan and back on precedex drip last night, due to agitation, would swing at staff/kick when he would wake / when cleaning him / repositioning patient difficult to arouse this morning does seem to need less ativan/precedex, so suspect he is improving RAYO slightly improved with IVF potassium back up to 6.1 - currently unable to take PO due to mentation, given insulin with slight improvement to 6.1 no clear source for hyperK, expanded workup started CPK > 14k (09/06 afternoon) rhabdo can lead to hyperkalemia rhabdo has been associated with influenza A will f/u UOP today and adjust IVF accordingly continue ICU level of care <Kt Polk - Last Filed: 09/07/24 06:28>
[2024-09-06 10:31] LABS: Anion Gap 8.1 mEq/L (5.0-15.0)
[2024-09-06 10:32] LABS: Potassium 6.1 mEq/L (3.5-5.1)
[2024-09-06] MEDS: INSULIN REGULAR (HUMAN) 100 UNIT/ML SQ SCH (11:16)
--- NOTE | 2024-09-06 11:33 | EKG ---
Test Date: 2024-09-04 Test Time: 10:15:55 Plastics Factory Worker: ELINA MEASUREMENT RESULTS: Intervals: Rate: 111 FL: 150 QRSD: 100 QT: 344 QTc: 467 Ar[place]oles: P: 70 FL: 150 QRS: 44 T: -36 INTERPRETIVE STATEMENTS: Sinus tachycardia Nonspecific ST and T wave abnormality Abnormal ECG Compared to ECG 06/18/2004 11:43:00 ST (T wave) deviation now present Sinus bradycardia no longer present Sinus arrhythmia no longer present Electronically Signed On 09-06-24 11:30:24 INSIDE ACCOUNT EXECUTIVE by Candelario Kirkpatrick
[2024-09-06] MEDS: NACHLORIDE 0.45% 500 ML IV SCH ×2 (20:15→21:03)
--- NOTE | 2024-09-06 20:31 | P.PN ---
Date of Service: 09/06/24 Vital Signs Temp Pulse Resp BP Pulse Ox 97.2 F 64 14 94/61 100 09/06/24 16:00 09/06/24 19:00 09/06/24 19:00 09/06/24 19:00 09/06/24 19:00 Medications Acetaminophen (Acetaminophen 325 Mg Tablet) 650 mg PO Q4HP PRN PRN Reason: TEMP > 100' F Acetaminophen (Acetaminophen 650mg/Rect Supp) 650 mg SD Q4H PRN PRN Reason: TEMP > 100' F Last Admin: 09/06/24 01:20 Dose: 650 mg Glucagon (Glucagon 1 Mg/Vial) 1 mg IM 1X PRN PRN Reason: HYPOGLYCEMIA Heparin Sodium (Porcine) (Heparin 5000 Unit/Ml 1 Ml Vial) 5,000 unit SQ Q12HR [facility]EN[facility] Last Admin: 09/06/24 20:18 Dose: 5,000 unit Hydrocortisone Sodium Succinate (Hydrocortisone Suc 100 Mg Inj) 100 mg IV Q12HR RENZO Last Admin: 09/06/24 20:18 Dose: 100 mg Cefepime HCl 2 gm/ Sodium (Chloride) 100 mls @ 200 mls/hr IV Q12HR [facility]; Protocol Last Admin: 09/06/24 20:17 Dose: 100 mls Metronidazole/Sodium Chloride (Flagyl 500mg/100 Ml Iv Premix) 500 mg in 100 mls @ 200 mls/hr IV Q8HR [facility]EN[facility]; Protocol Last Admin: 09/06/24 16:10 Dose: 100 mls Dextrose (Dextrose 10% Water Iv Soln.) 125 mls @ 0 mls/hr IV PRN PRN; Protocol PRN Reason: HYPOGLYCEMIA Vancomycin HCl 2 gm/ Sodium (Chloride) 500 mls @ 250 mls/hr IVPB Q24H [facility] Last Admin: 09/05/24 20:17 Dose: 500 mls Levofloxacin/Dextrose (Levaquin 750 Mg/150 Ml Ivpb (Premix)) 750 mg in 150 mls @ 100 mls/hr IV Q48H [facility]; Protocol Last Admin: 09/05/24 12:52 Dose: 150 mls Dexmedetomidine HCl 1,000 mcg/ (Sodium Chloride) 500 mls @ 12.428 mls/hr IV TI TR [facility]; Protocol Last Titration: 09/06/24 18:15 Dose: 0.3 mcg/kg/hr, 18.6 mls/hr Sodium Chloride (Ns 1000 Ml Ivbag) 1,000 mls @ 150 mls/hr IV .Q6H40M RENZO Sodium Chloride (Sodium Chloride 0.45%) 500 mls @ 500 mls/hr IV .Q1H [facility] Stop: 09/06/24 21:14 Insulin Human Regular (Insulin Regular (Human) 100 Unit/Ml) 0 unit SQ Q6HR [facility]; Protocol Last Admin: 09/06/24 17:39 Dose: 4 unit Lorazepam (Lorazepam 2 Mg/Ml Vial) 1 mg IV Q2H PRN PRN Reason: SEDATION Last Admin: 09/06/24 05:20 Dose: 1 mg Mupirocin (Mupirocin Nasal 2 Appl/1 Gm Tube) 1 appl JENNY BID [facility] Stop: 09/09/24 21:01 Last Admin: 09/06/24 20:18 Dose: 1 appl Ondansetron HCl (Ondansetron 4 Mg/2 Ml Vial) 4 mg IV Q6HP PRN PRN Reason: NAUSEA / VOMITING Oseltamivir Phosphate (Oseltamivir Phosphate 30 Mg/5 Ml Suspension Ud) 75 mg PO BID [facility] Stop: 09/11/24 21:01 Thiamine HCl (Thiamine 200 Mg/2 Ml Inj) 200 mg IVP BID [facility] Last Admin: 09/06/24 20:18 Dose: 200 mg Microbiology Results 09/04/24 11:45 Blood - Blood Aerobic Blood Culture - Preliminary No growth in 24 hours. 09/04/24 11:45 Blood - Blood Anaerobic Blood Culture - Preliminary No growth in 24 hours. 09/04/24 10:16 Blood - Blood Aerobic Blood Culture - Preliminary No growth in 24 hours. 09/04/24 10:16 Blood - Blood Anaerobic Blood Culture - Preliminary No growth in 24 hours. Assessment/ Plan: Nephrology Limited IH/ROS due to AMS Vitals, medications, blood work and imaging reviewed in the chart General: In no apparent distress HEENT: Atraumatic Neck: Supple Respiratory: Diminished Cardiovascular: No edema, Regular rate/rhythm Gastrointestinal: Non-distended, No guarding Musculoskeletal: No clubbing, No contractures Integumentary: No rashes, No cyanosis Laboratory Data (last 24 hrs) 09/04/24 09/04/24 10:16 10:16 WBC 10.10 Hgb 13.8 Hct 42.7 Plt Count 113 L Sodium 135 L Potassium 3.9 BUN 11 Creatinine 1.75 H Glucose 179 H Total Bilirubin 0.8 AST 386 H ALT 152 H Alkaline Phosphatase 78 Imagings Data: [id number] EXAMINATION: ONE VIEW CHEST XR CLINICAL INDICATION: PICC Line Insertion TECHNIQUE: Frontal chest projection is submitted. Examination is limited by patient positioning and technique. COMPARISON: No prior exam. FINDINGS: Right-sided PICC line is in place with tip in the SVC. Bilateral pulmonary opaci ties are noted, mild. The heart is upper limit normal in size. IMPRESSION: Right PICC line has tip in the SVC without complication seen. [id number] EXAM: CT brain without contrast HISTORY: AMS COMPARISON: 10/24/2015 TECHNIQUE: Multiple contiguous axial images were obtained and a CT of the brain without contrast. Sagittal and coronal reformats were performed. One or more of the following dose reduction techniques were used: Automated exposure control, adjustment of the mA and/or kV according to patient size, and/or iterative reconstruction. FINDINGS: No evidence of hydrocephalus, intracranial hemorrhage, or extra-axial fluid collection. The brain is normal in morphology. No evidence of midline shift or areas of brain edema. The calvarium is intact. The visualized paranasal sinuses and mastoid air cells are essentially clear. IMPRESSION: No evidence of acute intracranial abnormality. [id number] EXAMINATION: ONE VIEW CHEST XR CLINICAL INDICATION: AMS TECHNIQUE: Frontal chest projection is submitted. Examination is limited by patient positioning and technique. COMPARISON: 12/02/2019 FINDINGS: Mild interstitial prominence is seen, greatest in the left upper lobe. No focal consolidation developing bacterial pneumonia is seen. The heart is upper limit of normal in size. No displaced fractures identified. IMPRESSION: Mild interstitial prominence greatest in left upper lobe, likely related to infection. [id number] EXAMINATION: CT ABDOMEN AND PELVIS WITHOUT CONTRAST CLINICAL INDICATION: vomiting/diarrhea/AMS/hypotension TECHNIQUE: CT abdomen and pelvis was performed, without IV contrast, as per department protocol. Axial, sagittal and coronal reconstructions were obtained. One or more of the following dose reduction techniques were used: Automated exposure control, adjustment of the mA and kV according to the patient size, and iterative reconstruction. Unless otherwise specified, incidental findings do not require dedicated imaging follow-up. COMPARISON: No prior exam. FINDINGS: The lack of intravenous contrast limits the sensitivity of this exam for evaluation of solid visceral organs, vascular structures, and retroperitoneum. LOWER CHEST: The visualized lung bases are clear. LIVER:Mild fatty liver is present. No focal lesion or biliary dilatation is seen. Grossly unremarkable gallbladder. SPLEEN: Normal size. No focal lesion. PANCREAS: No mass, ductal dilation, or leticia-pancreatic fluid. ADRENALS: Normal; no mass. KIDNEYS AND URETERS: Normal size and contour. No hydronephrosis. URINARY BLADDER: Normal contour. GASTROINTESTINAL TRACT: No evidence of bowel obstruction, significant free fluid, free air or abscess. APPENDIX: Normal appendix. LYMPH NODES: No lymphadenopathy. MUSCULOSKELETAL: No acute or suspicious osseous abnormality. ADDITIONAL FINDINGS: None. IMPRESSION: No acute or concerning abnormalities in the abdomen or pelvis, with evaluation limited by lack of IV contrast. Fatty liver. Conclusions/Impression: Stage II RAYO may be due to hypovolemia with hypotension complicated by rhabdomyolysis CKD with Proteinuria suspected but the stage is unclear Microscopic Hematuria -No NSAIDs -Increase IVF -IVF bolus as ordered Hyponatremia -Continue IVF Hyperkalemia -Continue IVF Septic Shock/ Influenza A Hypotension -Continue IVF -IVF bolus as ordered -Continue Abx DM II with CKD -RISS Elevated LFTs -Continue IVF Anemia in chronic illness -Monitor H&H Toxic Metabolic Encephalopathy -Continue supportive care Hospitalist note reviewed Case discussed with Dr. Polk Patient care 35min
[2024-09-06] MEDS: NA CHLORIDE 0.9% 1,000 ML IV SCH (20:39)
[2024-09-06] MEDS: OSELTAMIVIR PHOSPHATE 30 MG/5 ML SUSPENSION UD PO SCH (21:00)
[2024-09-07 05:45] LABS: Absolute Lymphocytes (CBC) 0.7 K/uL (0.7-4.9); Absolute Monocytes 0.2 K/uL (0.1-1.3); Absolute Neutrophil 5.6 K/uL (1.8-8.0); Basophils % 0.1 % (0-1.3); Hematocrit 34.4 % (39.6-49.0); Hemoglobin 11.2 g/dL (13.6-17.9); Lymphocytes % 10.3 % (15.3-44.8); MCH 28.8 pg (27.0-35.0); MCHC 32.4 g/dL (32.0-36.0); MCV 88.7 fL (80-100); MPV 11.2 fL (7.6-11.3); Monocytes % 3.4 % (3.3-12.3); Neutrophils % 86.2 % (41.7-73.7); Nucleated Red Blood Cells % 0.1 % (0-0); Platelets 64 thou/uL (152-406); RBC Red Blood Cell Count 3.88 M/uL (4.33-5.43); Red Cell Distribution Width 14.7 % (12.1-15.2)
[2024-09-07] MEDS: NACHLORIDE 0.45% 500 ML IV SCH (06:38)
[2024-09-07 06:50] LABS: ALT/SGPT 83 U/L (16-61); AST/SGOT 167 U/L (15-37); Albumin 2.8 g/dL (3.4-5.0); Albumin/Globulin Ratio 0.7 (1.1-1.8); Alkaline Phosphatase 43 U/L (45-117); Anion Gap 5.2 mEq/L (5.0-15.0); BUN Blood Urea Nitrogen 23 mg/dL (7-18); Bicarbonate 24 mEq/L (21-32); Bilirubin Total 0.3 mg/dL (0.2-1.0); Glomerular Filtration Rate 67 ml/min (=/>90); Glucose Level 236 mg/dL (74-106); Magnesium 2.3 mg/dL (1.6-2.4); Phosphorus 2.2 mg/dL (2.5-4.9); Protein, Total 6.8 g/dL (6.4-8.2); Sodium Level 141 mEq/L (136-145)
[2024-09-07 06:51] LABS: Creatine Phosphokinase > 12600 U/L (39-308)
[2024-09-07 06:52] LABS: Potassium 6.2 mEq/L (3.5-5.1)
--- NOTE | 2024-09-07 09:37 | P.PN ---
Date of Service: 09/07/24 Subjective: Difficult to arouse, reports that he is agitated requiring precedex gtt. Coughing, clearing his throat Elevated CK, IVF increased yesterday, potassium elevated 6.2, insulin shift ordered ROS: 10 point ROS as noted above, otherwise negative Physical exam GEN: obtunded, NAD HEENT: Normal conjunctiva, sclera anicteric CV: Regular rate and rhythm, S1 S2 present, no edema Pulm: Nonlabored respirations, expiratory wheezing, on room air ABD: Soft and benign on palpation, ND/NT, hypoactive bowel sounds MSK: No joint tenderness Integumentary: No rashes Neuro: obtunded Vitals reviewed Assessment: Severe sepsis secondary to influenza A/viral Metabolic encephalopathy secondary to above Acute kidney injury Hyperkalemia 2/2 Rhabdomyolisis Transaminitis History of diabetes mellitus type 2noncompliant History of CHFunknown EF History of hypertension Plan: Severe sepsis secondary to influenza A/viral Metabolic encephalopathy secondary to above Positive for influenza A Patient with profuse watery diarrhea Confused/agitated Will order Tamiflu but likely unable to take by mouth for now Continue broad-spectrum antibiotics given concern for pneumonia, profuse diarrhea Reevaluate antibiotics after cultures return, blood cultures NGTD Pulmonary consult C. difficile pending Procal, CK, and CRP significantly elevated Spinal fluid profile not consistent with bacterial meningitis Acute kidney injury Continue IV fluids Nephrology consult Hyperkalemia 2/2 Rhabdomyolisis K 6.2, repeat at 1500 Insulin 10 units with D50 gm IV x1 Will monitor in AM labs x1 IVF increased 09/[address] abdomen pelvis performed negative for acute findings, trend CMP Continues with slow improvement in LFTs overnight History of diabetes mellitus type 2noncompliant History of CHFunknown EF History of hypertension Patient noncompliant with medication for at least the last few months per DVT PPX: Heparin subcu Code status:full Discharge Plan: Home Plan to discharge in: Greater than 2 days
[2024-09-07] MEDS: ALBUTEROL 2.5 MG/3 ML NEB SOL NEB ONE ×2 (10:33→13:17)
--- NOTE | 2024-09-07 10:35 | P.PN ---
Nephrology (S) Pt remains in the ICU, lethargic on low dose Precedex drip per ICU/primary team, remains on IVF, UOP acceptable, not needing O2, no resp distress, occasional cough. Vitals, medications, blood work and imaging reviewed in the chart General: In no apparent distress, lethargic HEENT: Atraumatic, not on O2 Neck: Supple Respiratory: b/l air entry without sig rhonchi or wheezing Cardiovascular: No LE edema, Regular rate/rhythm Gastrointestinal: Non-distended, soft, mild upper quadrant TTP Musculoskeletal: No contractures, no myalgias Integumentary: Lethargic, briefly grumbles with physical stimuli, moves UE spont, no tremors or myoclonus observed Laboratory Data (last 24 hrs) Reviewed in the EMR Conclusions/Impression: Stage I RAYO on admission, multifactorial with Cr level downward trending Possible earlier stage CKD NOS in the setting of DM/urine studies with albuminuria but any proteinuria in the setting of current RAYO may be tubular, inaccurate and needs repeating Microscopic Hematuria, unspecified in the setting of RAYO, rhabd, other -Cont aggressive IVF hydration but monitor I/O's closely Hyperkalemia in the setting of above and rhabdo -Will dose D50/Insulin/albuterol and switch IVF to bicarb added. When pt is more awake, will administer Lokelma. Will repeat level this afternoon Acute rhabdomyolysis -In the setting of illness +/- other, no UDS performed on admission. CPK level remains > 10K, urine pH low, switch to bicarb added IVF to alkalanize urine, trend CPK daily. Dose lasix PRN Influenza A illness, PNA -Resp status stable, management per IM
[2024-09-07] MEDS: D50W 25 GM/50 ML SYRINGE IV ONE (10:37)
[2024-09-07] MEDS: INSULIN REGULAR (HUMAN) 100 UNIT/ML IV ONE (10:38)
[2024-09-07] MEDS: FUROSEMIDE 20 MG/ 2ML VIAL IV ONE (11:23)
[2024-09-07] MEDS: NACHLORIDE 0.45% 1,000 ML with NA BICARB 8.4% 75 MEQ IV SCH (11:24)
[2024-09-07] MEDS: SODIUM ZIRCONIUM CYCLOSILICATE 10 GM/PKT PO ONE (12:00)
[2024-09-08 05:20] LABS: Absolute Lymphocytes (CBC) 0.9 K/uL (0.7-4.9); Absolute Monocytes 0.4 K/uL (0.1-1.3); Absolute Neutrophil 5.8 K/uL (1.8-8.0); Basophils % 0.5 % (0-1.3); Hematocrit 33.2 % (39.6-49.0); Lymphocytes % 12.4 % (15.3-44.8); MCH 28.9 pg (27.0-35.0); MCHC 33.1 g/dL (32.0-36.0); MCV 87.3 fL (80-100); MPV 11.1 fL (7.6-11.3); Monocytes % 5.1 % (3.3-12.3); Nucleated Red Blood Cells % 0.3 % (0-0); Red Cell Distribution Width 14.5 % (12.1-15.2)
[2024-09-08 05:22] LABS: Platelets 68 thou/uL (152-406)
[2024-09-08 06:02] LABS: Albumin 2.9 g/dL (3.4-5.0); Albumin/Globulin Ratio 0.8 (1.1-1.8); Anion Gap 8.1 mEq/L (5.0-15.0); Bilirubin Total 0.3 mg/dL (0.2-1.0); Globulin 3.5 g/dL (2.3-3.5); Potassium 4.1 mEq/L (3.5-5.1); Protein, Total 6.4 g/dL (6.4-8.2)
[2024-09-08 06:04] LABS: Phosphorus 1.2 mg/dL (2.5-4.9)
[2024-09-08] MEDS: SODIUM PHOSPHATE 15 MM in NA CHLORIDE 0.9% 250 ML IV ONE (08:36)
--- NOTE | 2024-09-08 08:49 | P.PN ---
Date of Service: 09/08/24 Subjective: Precedex and ativan off, now awake and feeling agitated He cannot follow commands this morning, eyes open, and he calls out ROS: 10 point ROS as noted above, otherwise negative Physical exam GEN: awake, not following commands, NAD HEENT: Normal conjunctiva, sclera anicteric CV: NSR, S1 S2 present, no edema Pulm: Nonlabored respirations, on room air ABD: Soft and benign on palpation, ND/NT, hypoactive bowel sounds MSK: No joint tenderness Integumentary: No rashes Neuro: agitated Vitals reviewed Assessment: Severe sepsis secondary to influenza A/viral Metabolic encephalopathy secondary to above Acute kidney injury Hypophosphatemia Hyperkalemia 2/2 Rhabdomyolisis Transaminitis History of diabetes mellitus type 2noncompliant History of CHFunknown EF History of hypertension Plan: Severe sepsis secondary to influenza A/viral Metabolic encephalopathy secondary to above Positive for influenza A Patient with profuse watery diarrhea Confused/agitated Will order Tamiflu but likely unable to take by mouth for now Continue broad-spectrum antibiotics given concern for pneumonia, profuse diarrhea Reevaluate antibiotics after cultures return, blood cultures NGTD Pulmonary consult C. difficile pending Procal, CK, and CRP significantly elevated Spinal fluid profile not consistent with bacterial meningitis Acute kidney injury Continue IV fluids Nephrology consult Hypophosphatemia -Phos 1.2 -replace and follow labs in the AM Hyperkalemia 2/2 Rhabdomyolisis-improved K 4.1 09/08 CK >90486, >85561, 6893 Will monitor in AM labs x1 IVF sodium [id number]/ Transaminitis CT abdomen pelvis performed negative for acute findings, trend CMP Continues with slow improvement in LFTs overnight History of diabetes mellitus type 2noncompliant History of CHFunknown EF History of hypertension Patient noncompliant with medication for at least the last few months per DVT PPX: Heparin subcu Code status:full Discharge Plan: Home Plan to discharge in: Greater than 2 days
[2024-09-08] MEDS: MORPHINE 2 MG/ML SYR IV PRN (08:58)
[2024-09-08] MEDS: NACHLORIDE 0.45% 1,000 ML with NA BICARB 8.4% 75 MEQ IV SCH (10:34)
[2024-09-08] MEDS: Levofloxacin 750mg IV 750 MG/150 ML BAG IV SCH (12:00)
[2024-09-08] MEDS ORDERED: Levofloxacin 750mg IV 750 MG/150 ML BAG IV SCH (13:00)
[2024-09-09 05:07] LABS: Absolute Lymphocytes (CBC) 2.3 K/uL (0.7-4.9); Absolute Monocytes 0.5 K/uL (0.1-1.3); Absolute Neutrophil 3.2 K/uL (1.8-8.0); Basophils % 0.2 % (0-1.3); Eosinophils % 0.1 % (0-4.4); Hematocrit 34.1 % (39.6-49.0); Hemoglobin 11.3 g/dL (13.6-17.9); Lymphocytes % 38.5 % (15.3-44.8); MCH 28.8 pg (27.0-35.0); MCHC 33.2 g/dL (32.0-36.0); MCV 86.6 fL (80-100); MPV 10.7 fL (7.6-11.3); Neutrophils % 53.2 % (41.7-73.7); Nucleated Red Blood Cells % 0.5 % (0-0); Platelets 75 thou/uL (152-406); RBC Red Blood Cell Count 3.93 M/uL (4.33-5.43); Red Cell Distribution Width 14.6 % (12.1-15.2)
[2024-09-09 05:39] LABS: Blood Morphology Comment NOT SEEN (NOT SEEN); Platelet Estimate DECR; White Blood Cell Scan OK (OK)
[2024-09-09 05:47] LABS: Albumin 2.7 g/dL (3.4-5.0); Albumin/Globulin Ratio 0.8 (1.1-1.8); Anion Gap 8.1 mEq/L (5.0-15.0); Bilirubin Total 0.3 mg/dL (0.2-1.0); Globulin 3.3 g/dL (2.3-3.5); Potassium 3.1 mEq/L (3.5-5.1)
[2024-09-09 05:49] LABS: Phosphorus 1.5 mg/dL (2.5-4.9)
[2024-09-09] MEDS: POTASSIUM PHOS IN 0.9 % NACL 15 MMOL/250 ML BAG IV ONE ×2 (06:03→19:10)
[2024-09-09] MEDS: KCL 20 MEQ/100 mL IVPB 20 MEQ/100 ML BAG IV SCH (08:55)
--- NOTE | 2024-09-09 12:42 | P.PN ---
Date of Service: 09/09/24 Subjective: One dose of ativan overnight On morning rounds, he was unable to wake up. This afternoon, starting to speak Remains on RA, serum glucose better ROS: 10 point ROS as noted above, otherwise negative Physical exam GEN: Sleeping, NAD HEENT: Normal conjunctiva, sclera anicteric CV: NSR, S1 S2 present, no edema Pulm: Nonlabored respirations, on room air ABD: Soft and benign on palpation, ND/NT, hypoactive bowel sounds MSK: No joint tenderness Integumentary: No rashes Neuro: agitated Vitals reviewed Assessment: Severe sepsis secondary to influenza A/viral Metabolic encephalopathy secondary to above Acute kidney injury Hypophosphatemia Hyperkalemia 2/2 Rhabdomyolisis Transaminitis History of diabetes mellitus type 2noncompliant History of CHFunknown EF History of hypertension Plan: Severe sepsis secondary to influenza A/viral Metabolic encephalopathy secondary to above Positive for influenza A Patient with profuse watery diarrhea Confused/agitated Will order Tamiflu but likely unable to take by mouth for now Continue broad-spectrum antibiotics given concern for pneumonia, profuse diarrhea Reevaluate antibiotics after cultures return, blood cultures NGTD Pulmonary consult C. difficile sample not obtained and diarrhea stopped quickly Procal, CK, and CRP significantly elevated Spinal fluid profile not consistent with bacterial meningitis Acute kidney injury Continue IV fluids Nephrology consult Hypophosphatemia Phos 1.5 replace and follow labs in the AM Hyperkalemia 2/2 Rhabdomyolisis-improved K 3.1 09/08 CK >92500, >71907, 6893 Will monitor in AM labs x1 IVF sodium bicarb 09/[address] abdomen pelvis performed negative for acute findings, trend CMP Continues with slow improvement in LFTs overnight History of diabetes mellitus type 2noncompliant History of CHFunknown EF History of hypertension Patient noncompliant with medication for at least the last few months per DVT PPX: Heparin subcu Code status:full Discharge Plan: Home Plan to discharge in: Greater than 2 days
[2024-09-09] MEDS: NACHLORIDE 0.45% 1,000 ML with NA BICARB 8.4% 75 MEQ IV SCH (16:40)
[2024-09-09 17:49] LABS: Potassium 3.4 mEq/L (3.5-5.1)
[2024-09-10 04:31] LABS: Absolute Lymphocytes (CBC) 2.1 K/uL (0.7-4.9); Absolute Monocytes 0.5 K/uL (0.1-1.3); Absolute Neutrophil 2.4 K/uL (1.8-8.0); Basophils % 0.2 % (0-1.3); Eosinophils % 0.7 % (0-4.4); Hematocrit 34.4 % (39.6-49.0); Hemoglobin 11.3 g/dL (13.6-17.9); Lymphocytes % 41.4 % (15.3-44.8); MCH 28.4 pg (27.0-35.0); MCHC 32.9 g/dL (32.0-36.0); MCV 86.2 fL (80-100); MPV 9.5 fL (7.6-11.3); Monocytes % 9.2 % (3.3-12.3); Neutrophils % 48.5 % (41.7-73.7); Nucleated Red Blood Cells % 0.1 % (0-0); Platelets 73 thou/uL (152-406); RBC Red Blood Cell Count 3.99 M/uL (4.33-5.43); Red Cell Distribution Width 13.9 % (12.1-15.2)
[2024-09-10 04:46] LABS: Albumin 2.7 g/dL (3.4-5.0); Albumin/Globulin Ratio 0.8 (1.1-1.8); Anion Gap 7.9 mEq/L (5.0-15.0); Bilirubin Total 0.4 mg/dL (0.2-1.0); Globulin 3.2 g/dL (2.3-3.5); Magnesium 1.9 mg/dL (1.6-2.4); Phosphorus 2.2 mg/dL (2.5-4.9); Potassium 2.9 mEq/L (3.5-5.1); Protein, Total 5.9 g/dL (6.4-8.2)
[2024-09-10] MEDS: POTASSIUM PHOS IN 0.9 % NACL 15 MMOL/250 ML BAG IV ONE (05:26)
--- NOTE | 2024-09-10 07:36 | P.PN ---
Date of Service: 09/10/24 Subjective: More awake/alert. Mentation improving. oriented x3 - know he's in hospital, doesn't recall why or last few days 1 episode of diarrhea overnight breathing more comfortably on room air. afebrile ROS: 10 point ROS as noted above, otherwise negative Physical Exam: GEN: Alert, orientedx3, NAD, somnolent CV: Regular rate and rhythm, trace lower extremity edema bilaterally Pulm: Nonlabored respirations on room air, mildy diminished bilaterally ABD: soft, nontender, nondistended Arevalo in place Problem List: Severe sepsis secondary to acute influenza A+ Metabolic encephalopathy secondary to above Acute Rhabdomyolysis RAYO, resolved Hyperkalemia secondary to rhabdo Hypophosphatemia Transaminitis NIDDM2 chronic CHFunknown EF Hypertension Plan: Severe sepsis secondary to acute influenza A+ Metabolic encephalopathy secondary to above on admission, presents with altered mentation, confusion, lethargy, shortness of breath. tested positive for influenza A 09/04 CXR (09/04): mild interstitial prominence L > R, likely related to infection. CT head (09/04) negative; CT abd (09/04) noted fatty liver otherwise negative. continue empiric IV cefepime / levaquin for now (09/08); added as a precaution to cover possible pneumonia/bacterial infection Blood cx (09/04): no growth. Stool studies pending s/p lumbar puncture (09/04): culture without growth dc abx 09/10 - do not suspect bacterial infxn, and now s/p 7 day treatment off precedex since 09/06 Dr. Joy, pulm is following - out of town soft/bite sized diet PT consult procal resolved, CRP significantly improved 09/10 More awake/alert. Mentation improving Acute Rhabdomyolysis RAYO, resolved Hyperkalemia secondary to rhabdo Hypophosphatemia Monitor and replete electrolytes as needed Continue to monitor renal function Nephrology consulted Continue IVF, will discuss with nephro regarding bicarb creatinine improved CPK 7k -> 12k+ (09/10) Transaminitis CT abdomen pelvis performed negative for acute findings Daily labs - improving/stable NIDDM2 chronic CHFunknown EF Hypertension Patient noncompliant with medication for at least the last few months per confirm home meds, restart as appropriate VTE: heparin sq Code: Full Dispo: Home, ~2-3 days pending rhadbo resolves, off oxygen, mentation improving, eating anticipate downgrade in next ~24hrs, may need sitter as still confused Time Spent Managing Pts Care (In Minutes): 55
[2024-09-10] MEDS: KCL 20 MEQ/100 mL IVPB 20 MEQ/100 ML BAG IV SCH ×2 (07:55→12:06)
[2024-09-10] MEDS: HEPARIN 5000 UNIT/ML 1 ML VIAL SQ SCH (07:57)
--- NOTE | 2024-09-10 13:11 | P.PN ---
Nephrology (S) Pt remains in the ICU, less lethargic when seen today, off Precedex gtt, remains on IVF, polyuric on it. K repleted earlier today. No acute complaints when seen Vitals, medications, blood work and imaging reviewed in the chart General: In no apparent distress, lethargic HEENT: Atraumatic, not on O2 Neck: Supple Respiratory: b/l air entry without sig rhonchi or wheezing Cardiovascular: No LE edema, Regular rate/rhythm Gastrointestinal: Non-distended, soft, mild upper quadrant TTP Musculoskeletal: No contractures, no myalgias Integumentary: Lethargic, awakens easily, responds briefly, moves UE spont, no tremors or myoclonus observed Laboratory Data (last 24 hrs) Reviewed in the EMR Conclusions/Impression: Stage I ARYO on admission, multifactorial with Cr level normalized Proteinuria unspecified -noted albuminuria on spot urine testin gbut any proteinuria in the setting of current RAYO may be tubular, inaccurate and needs repeating Microscopic Hematuria, unspecified in the setting of RAYO, rhabd, other -repeat as OP in a few weeks. -Given persistent CPK levels > 10K, have continued aggressive IVF hydration and now polyuric with renal recovery, will check myoglobin level to determine continued need for IVF at high rates as myoglobin is the nephrotoxic agent Check Vit D as there are reports of deficiency being associated with rhabdo and total Ca is low Hyperkalemia in the setting of above and rhabdo, resolved and now with hypokalemia -K repleted earlier, will switch maintenance IVF to LR Acute rhabdomyolysis -In the setting of illness +/- other, no UDS performed on admission. CPK level remains > 10K, urine pH was low, switched to bicarb added IVF to alkalanize urine Fri but felton now d/c, check myoglobin level as menntioned above Influenza A illness, PNA -Resp status stable, management per IM
[2024-09-10] MEDS: Ringers Lactate 1,000 ML IV SCH (15:17)
[2024-09-10] MEDS: ENSURE MAX PROTEIN 330 ML LIQUID PO SCH (20:46)
[2024-09-11 05:41] LABS: Absolute Eosinophils 0.1 K/uL (0-0.5); Absolute Lymphocytes (CBC) 2.1 K/uL (0.7-4.9); Absolute Monocytes 0.4 K/uL (0.1-1.3); Absolute Neutrophil 2.4 K/uL (1.8-8.0); Basophils % 0.5 % (0-1.3); Eosinophils % 2.1 % (0-4.4); Hematocrit 32.6 % (39.6-49.0); Lymphocytes % 41.6 % (15.3-44.8); MCH 28.6 pg (27.0-35.0); MCHC 33.7 g/dL (32.0-36.0); MCV 84.8 fL (80-100); MPV 10.2 fL (7.6-11.3); Monocytes % 7.2 % (3.3-12.3); Neutrophils % 48.6 % (41.7-73.7); Nucleated Red Blood Cells % 0.3 % (0-0); Platelets 107 thou/uL (152-406); RBC Red Blood Cell Count 3.85 M/uL (4.33-5.43); Red Cell Distribution Width 13.4 % (12.1-15.2)
[2024-09-11] MEDS: HEPARIN 5000 UNIT/ML 1 ML VIAL SQ SCH (08:03)
[2024-09-11 08:08] LABS: Albumin 2.7 g/dL (3.4-5.0); Albumin/Globulin Ratio 0.9 (1.1-1.8); Anion Gap 5.8 mEq/L (5.0-15.0); Bilirubin Total 0.5 mg/dL (0.2-1.0); Magnesium 1.8 mg/dL (1.6-2.4); Phosphorus 1.8 mg/dL (2.5-4.9); Potassium 2.8 mEq/L (3.5-5.1); Protein, Total 5.7 g/dL (6.4-8.2)
[2024-09-11] MEDS ORDERED: POTASSIUM CL SA 10 MEQ TAB PO ONE (09:05)
[2024-09-11] MEDS: POTASS/SODIUM PHOSPHATE 1 PKT POWD.PACK PO SCH (09:24)
[2024-09-11] MEDS: MAGNESIUM SULFATE 1 gm IVPB 1 GM/100 ML BAG IV ONE (09:25)
[2024-09-11] MEDS: KCL 20 MEQ/100 mL IVPB 100 ML IV SCH (09:28)
--- NOTE | 2024-09-11 12:09 | P.PN ---
Nephrology (S) Pt remains in the ICU, less lethargic when seen today, off Precedex gtt, remains on IVF, polyuric on it. K repleted earlier today. No acute complaints when seen Vitals, medications, blood work and imaging reviewed in the chart General: In no apparent distress, lethargic HEENT: Atraumatic, not on O2 Neck: Supple Respiratory: b/l air entry without sig rhonchi or wheezing Cardiovascular: No LE edema, Regular rate/rhythm Gastrointestinal: Non-distended, soft, mild upper quadrant TTP Musculoskeletal: No contractures, no myalgias Integumentary: Lethargic, awakens easily, responds briefly, moves UE spont, no tremors or myoclonus observed Laboratory Data (last 24 hrs) Reviewed in the EMR Conclusions/Impression: Stage I RAYO on admission, multifactorial with Cr level normalized Proteinuria unspecified -noted albuminuria on spot urine testing but any proteinuria in the setting of current RAYO may be tubular, inaccurate and needs repeating Microscopic Hematuria, unspecified in the setting of RAYO, rhabdo, other -repeat as OP in a few weeks. -Given persistent CPK levels > 10K, have continued aggressive IVF hydration and now polyuric with renal recovery, did order myoglobin level to determine continued need for IVF at high rates as myoglobin is the nephrotoxic agent but must be send out test as no levels reported Checked Vit D as there are reports of deficiency being associated with rhabdo and total Ca is low and level severely reduced and < 10, placed on Vit D3 5000 IU daily Hyperkalemia in the setting of above and rhabdo, resolved and now with hypokalemia -Receiving additional IV KCL today, recheck post repletion, did switch maintenance IVF to LR Acute rhabdomyolysis -In the setting of illness +/- other, no UDS performed on admission. CPK level remains > 10K (now actual level reported), urine pH last week was low, switched to bicarb added IVF to alkalanize urine Fri but did since d/c, check myoglobin level as menntioned above Influenza A illness, PNA -Resp status stable, management per IM
--- NOTE | 2024-09-11 13:04 | P.PN ---
Subjective Date of Service: 09/11/24 Chief Complaint: AMS, pneumonia Patient reports feeling better. He endorsed fatigue. Patient was able to ambulate yesterday. He requested Arevalo catheter to be removed. Physical Examination - Vital Signs Temperature: 97.5 F Blood Pressure: 138/74 Pulse: 60 Respirations: 20 Pulse Ox (%): 98 Assessment And Plan - Plan Physical Exam: GEN: Alert, orientedx3, NAD. CV: Normal rate and regular rhythm, no murmur Pulm: Clear to auscultation bilaterally, adequate breath sounds bilaterally. ABD: soft, nontender, nondistended. Extremities: Trace bilateral lower extremity pitting edema Urogenital: Arevalo in place Problem List: Severe sepsis secondary to acute influenza A+ Metabolic encephalopathy secondary to above Acute Rhabdomyolysis RAYO, resolved Hyperkalemia secondary to rhabdo Hypophosphatemia Transaminitis NIDDM2 chronic [facility] EF Hypertension Plan: Severe sepsis secondary to acute influenza A+ Metabolic encephalopathy secondary to above Patient tested positive for influenza A 09/04 CXR (09/04): mild interstitial prominence L > R, likely related to infection. CT head (09/04) negative; CT abd (09/04) noted fatty liver otherwise negative. continue empiric IV cefepime / levaquin for now (09/08) for possible secondary bacterial pneumonia. Blood cx (09/04): no growth. Stool studies pending s/p lumbar puncture (09/04): culture without growth Patient completed 7 days of antibiotics. Antibiotics discontinued. off precedex since 09/06 and currently awake and alert. Dr. Joy pulmonary evaluated and assisted with management. He is tolerating soft/bite sized diet Continue PT More awake/alert. Mentation improving Acute Rhabdomyolysis RAYO, resolved Hyperkalemia secondary to rhabdo Hypophosphatemia Acute rhabdomyolysis likely secondary to severe influenza infection. Nephrology is following Continue IV fluid. CK levels trended up significantly over the last couple of days. Monitor CK levels Monitor and replete electrolytes as needed Continue to monitor renal function Sodium bicarb infusion per nephrology. Discontinue Arevalo catheter. Transaminitis CT abdomen pelvis performed negative for acute findings Elevated LFTs likely related to elevated CK. LFTs trended down. Monitor levels. NIDDM2 chronic [facility] EF Hypertension Patient noncompliant with medication for at least the last few months per Validate home medications and resume them as needed. Insulin sliding scale for glucose management. VTE: heparin sq Code: Full Dispo: Home, ~2-3 days Time Spent Managing Pts Care (In Minutes): 47 minutes
[2024-09-11] MEDS: VITAMIN D 5,000 UNIT CAP PO SCH (13:32)
[2024-09-11] MEDS: POTASSIUM CL SA 10 MEQ TAB PO ONE (22:54)
[2024-09-12 07:31] LABS: Magnesium 1.7 mg/dL (1.6-2.4); Phosphorus 2.1 mg/dL (2.5-4.9)
[2024-09-12] MEDS: MAGNESIUM SULFATE 1 gm IVPB 1 GM/100 ML BAG IV ONE (08:53)
[2024-09-12] MEDS: POTASS/SODIUM PHOSPHATE 1 PKT POWD.PACK PO SCH (08:53)
[2024-09-12] MEDS: Ringers Lactate 1,000 ML IV SCH (11:52)
[2024-09-12] MEDS: KCL 20 MEQ/100 mL IVPB 20 MEQ/100 ML BAG IV SCH (11:52)
[2024-09-12] MEDS ORDERED: POTASSIUM CL SA 10 MEQ TAB PO SCH (13:00)
--- NOTE | 2024-09-12 13:05 | P.PN ---
Nephrology (S) Pt out of the ICU, mentation has improved, denies any myalgias, cramps, spasms or other new symptoms Vitals, medications, blood work and imaging reviewed in the chart General: In no apparent distress, lethargic HEENT: Atraumatic, not on O2 Neck: Supple Respiratory: b/l air entry without sig rhonchi or wheezing Cardiovascular: No LE edema, Regular rate/rhythm Gastrointestinal: Non-distended, soft, NT Musculoskeletal: No contractures, no myalgias Integumentary: Awake, conversive, no tremors or myoclonus observed Laboratory Data (last 24 hrs) Reviewed in the EMR Conclusions/Impression: Stage I RAYO on admission, multifactorial with Cr level normalized Proteinuria unspecified -noted albuminuria on spot urine testing but any proteinuria in the setting of current RAYO may be tubular, inaccurate and needs repeating Microscopic Hematuria, unspecified in the setting of RAYO, rhabdo, other -repeat as OP in a few weeks. -Given persistent CPK levels > 10K, had continued aggressive IVF hydration and then polyuric with renal recovery, did order myoglobin level to determine continued need for IVF at high rates as myoglobin is the nephrotoxic agent but must be send out test as no levels reported Checked Vit D as there are reports of deficiency being associated with rhabdo and total Ca is low and level severely reduced and < 10, placed on Vit D3 5000 IU daily CPK level a few days was reported as < 10K and then since then has again risen dramatically which is unexpected, while pt has been relatively bed bound over the past few days, unclear if other medications received in recent days (precedex, other) to blame, will discuss with IM Hyperkalemia in the setting of above and rhabdo, resolved and now with hypokalemia -Receiving additional IV KCL today, did switch maintenance IVF to LR Acute rhabdomyolysis -In the setting of illness, Vit D deficiency +/- other, no UDS performed on admission. CPK level a few days was reported as < 10K and then since then has again risen dramatically which is unexpected, while pt has been relatively bed bound over the past few days, unclear if other medications received in recent days (precedex, other) to blame, will discuss with IM Chronic HTN -BP has trended up mod, will avoid CCB given potential for drug induced myopathy, will use ARB agent with his lower K levels
[2024-09-12] MEDS: LOSARTAN POTASSIUM 50 MG TABLET PO SCH (14:33)
--- NOTE | 2024-09-12 14:44 | P.PN ---
Subjective Date of Service: 09/12/24 Chief Complaint: AMS, pneumonia Patient states he feels a lot better and ready to go home. He has been ambulating without difficulty. His urine looks clear. He denies any pain. Physical Examination - Vital Signs Temperature: 98 F Blood Pressure: 166/107 Pulse: 73 Respirations: 99 Pulse Ox (%): 99 Assessment And Plan - Plan Physical Exam: GEN: Alert, orientedx3, NAD. CV: Normal rate and regular rhythm, no murmur Pulm: Clear to auscultation bilaterally, adequate breath sounds bilaterally. ABD: soft, nontender, nondistended. Extremities: Trace bilateral lower extremity pitting edema Diagnosis Severe sepsis secondary to acute influenza A+ Metabolic encephalopathy secondary to above Acute Rhabdomyolysis RAYO, resolved Hyperkalemia secondary to rhabdo Hypophosphatemia Transaminitis NIDDM2 chronic [facility] EF Hypertension Plan: Severe sepsis secondary to acute influenza A+ Metabolic encephalopathy secondary to above Patient tested positive for influenza A 09/04 CXR (09/04): mild interstitial prominence L > R, likely related to infection. CT head (09/04) negative; CT abd (09/04) noted fatty liver otherwise negative. Patient was on empiric IV cefepime / levaquin for possible secondary bacterial pneumonia. Blood cx (09/04): no growth. Stool studies pending s/p lumbar puncture (09/04): culture without growth Patient completed 7 days of antibiotics. Antibiotics discontinued. off precedex since 09/06. AMS resolved Dr. Joy pulmonary evaluated and assisted with management. He is tolerating diet. Continue PT More awake/alert. Mentation improving Acute Rhabdomyolysis RAYO, resolved Hyperkalemia secondary to rhabdo Hypophosphatemia Acute rhabdomyolysis likely secondary to severe influenza infection. Nephrology is following. CK level trended up significantly from yesterday, unclear reason. Repeat CK level today Continue IV fluid. Monitor CK daily RAYO resolved and renal function has been stable Continue to monitor renal function Sodium bicarb infusion per nephrology. Transaminitis CT abdomen pelvis performed negative for acute findings Elevated LFTs likely related to elevated CK. LFTs trended down. Monitor levels. NIDDM2 chronic [facility] EF Hypertension Patient noncompliant with medication for at least the last few months per Insulin sliding scale for glucose management. Patient is on losartan Add amlodipine for blood pressure control. VTE: heparin sq Code: Full Dispo: Home.
[2024-09-13 07:06] LABS: Albumin 2.7 g/dL (3.4-5.0); Anion Gap 4.8 mEq/L (5.0-15.0); BUN Blood Urea Nitrogen 7 mg/dL (7-18); Bicarbonate 35 mEq/L (21-32); Glomerular Filtration Rate 112 ml/min (=/>90); Glucose Level 134 mg/dL (74-106); Magnesium 1.7 mg/dL (1.6-2.4); Phosphorus 3.3 mg/dL (2.5-4.9); Potassium 2.8 mEq/L (3.5-5.1); Sodium Level 142 mEq/L (136-145)
[2024-09-13 07:07] LABS: Creatine Phosphokinase > 12600 U/L (39-308)
[2024-09-13] MEDS: KCL 20 MEQ/100 mL IVPB 20 MEQ/100 ML BAG IV SCH (08:22)
[2024-09-13] MEDS: MAGNESIUM SULFATE 1 gm IVPB 1 GM/100 ML BAG IV ONE (08:23)
--- NOTE | 2024-09-13 10:35 | P.PN ---
Nephrology (S) Pt out of the ICU, mentation has improved, denies any myalgias, cramps, spasms or other new symptoms. Starting to eat more he reports. POC discussed Vitals, medications, blood work and imaging reviewed in the chart General: In no apparent distress, lethargic HEENT: Atraumatic, not on O2 Neck: Supple Respiratory: b/l air entry without sig rhonchi or wheezing Cardiovascular: No LE edema, Regular rate/rhythm Gastrointestinal: Non-distended, soft, NT Musculoskeletal: No contractures, no myalgias Integumentary: Awake, conversive, no tremors or myoclonus observed Laboratory Data (last 24 hrs) Reviewed in the EMR Conclusions/Impression: Stage I RAYO on admission, multifactorial resolved with Cr level normalized Proteinuria unspecified -noted albuminuria on spot urine testing but any proteinuria in the setting of current RAYO may be tubular, inaccurate and needs repeating Microscopic Hematuria, unspecified in the setting of RAYO, rhabdo, other -repeat as OP in a few weeks. Persistent hypokalemia -Will check TTKG to assess for renal wasting in the setting of post RAYO polyuria, other -Given persistent CPK levels > 10K, had continued aggressive IVF hydration and then polyuric with renal recovery, did order myoglobin level to determine continued need for IVF at high rates as myoglobin is the nephrotoxic agent but must be send out test as no levels reported Checked Vit D as there are reports of deficiency being associated with rhabdo and total Ca is low and level severely reduced and < 10, placed on Vit D3 5000 IU daily TSH ok CPK level a few days was reported as < 10K and then since then has again risen dramatically which is unexpected, while pt has been relatively bed bound over the past few days, unclear if other medications received in recent days (precedex, other) to blame, will discuss with IM Hyperkalemia in the setting of above and rhabdo, resolved and now with hypokalemia -Receiving additional IV KCL today, did switch maintenance IVF to LR. Ordered scheduled PO KCL and Mg. Target Mg > 2.0 Acute rhabdomyolysis -In the setting of illness, Vit D deficiency +/- other, no UDS performed on admission. CPK level a few days was reported as < 10K and then since then has again risen dramatically which is unexpected, while pt has been relatively bed bound over the past few days, unclear if other medications received in recent days (precedex, other) to blame, will discuss with IM Chronic HTN -BP has trended up mod, will avoid CCB given potential for drug induced myopath y, will use ARB agent with his lower K levels
--- NOTE | 2024-09-13 11:52 | P.PN ---
Subjective Date of Service: 09/13/24 Chief Complaint: AMS, pneumonia Patient reports has been ambulating without difficulty. He currently denies any complaint Physical Examination - Vital Signs Temperature: 98.1 F Blood Pressure: 167/94 Pulse: 72 Respirations: 12 Pulse Ox (%): 92 Assessment And Plan - Plan Physical Exam: GEN: Alert, orientedx3, NAD. CV: Normal rate and regular rhythm, no murmur Pulm: Clear to auscultation bilaterally, adequate breath sounds bilaterally. ABD: soft, nontender, nondistended. Extremities: Trace bilateral lower extremity pitting edema Diagnosis Severe sepsis secondary to acute influenza A+ Metabolic encephalopathy secondary to above Acute Rhabdomyolysis RAYO, resolved Hyperkalemia secondary to rhabdo Hypophosphatemia Transaminitis NIDDM2 chronic [facility] EF Hypertension Plan: Severe sepsis secondary to acute influenza A+ Metabolic encephalopathy secondary to above Patient tested positive for influenza A 09/04 CXR (09/04): mild interstitial prominence L > R, likely related to infection. CT head (09/04) negative; CT abd (09/04) noted fatty liver otherwise negative. Patient was on empiric IV cefepime / levaquin for possible secondary bacterial pneumonia. Blood cx (09/04): no growth. s/p lumbar puncture (09/04): culture without growth Sepsis resolved. Patient completed 7 days of antibiotics. Antibiotics discontinued. off precedex since 09/06. AMS resolved Dr. Joy pulmonary evaluated and assisted with management. He is tolerating diet. Continue PT Acute Rhabdomyolysis RAYO, resolved Hyperkalemia secondary to rhabdo Hypophosphatemia Acute rhabdomyolysis likely secondary to severe influenza infection. Nephrology is following. CK level started trending down again. Continue IV fluid. Monitor CK daily. Serial myoglobin levels are pending RAYO resolved and renal function has been stable Continue to monitor renal function Transaminitis CT abdomen pelvis performed negative for acute findings Elevated LFTs likely related to elevated CK. Monitor levels. NIDDM2 chronic [facility] EF Hypertension Patient noncompliant with medication for at least the last few months per Insulin sliding scale. Continue losartan and amlodipine for hypertension Hypokalemia Nephrology is following. Replace potassium. VTE: heparin sq Code: Full Dispo: Home.
[2024-09-13] MEDS: MAGNESIUM OXIDE 400 MG TAB PO SCH (13:08)
[2024-09-13] MEDS: AMLODIPINE 10 MG TAB PO SCH (13:08)
[2024-09-13] MEDS: POTASSIUM CL SA 10 MEQ TAB PO SCH (17:40)
[2024-09-14 06:41] LABS: Albumin 3.2 g/dL (3.4-5.0); Anion Gap 6.3 mEq/L (5.0-15.0); Magnesium 1.9 mg/dL (1.6-2.4); Phosphorus 3.7 mg/dL (2.5-4.9); Potassium 3.3 mEq/L (3.5-5.1)
[2024-09-14] MEDS: INSULIN REGULAR (HUMAN) 100 UNIT/ML SQ SCH (07:30)
[2024-09-14] MEDS: THIAMINE HCL 100 MG TABLET PO SCH (09:02)
--- NOTE | 2024-09-14 10:27 | P.PN ---
Nephrology (S) Pt out of the ICU, mentation has improved, denies any myalgias, cramps, spasms or other new symptoms. Starting to eat more he reports. POC discussed Vitals, medications, blood work and imaging reviewed in the chart General: In no apparent distress, lethargic HEENT: Atraumatic, not on O2 Neck: Supple Respiratory: b/l air entry without sig rhonchi or wheezing Cardiovascular: No LE edema, Regular rate/rhythm Gastrointestinal: Non-distended, soft, NT Musculoskeletal: No contractures, no myalgias Integumentary: Awake, conversive, no tremors or myoclonus observed Laboratory Data (last 24 hrs) Reviewed in the EMR Conclusions/Impression: Stage I RAYO on admission, multifactorial resolved with Cr level normalized Proteinuria unspecified -noted albuminuria on spot urine testing but any proteinuria in the setting of current RAYO may be tubular, inaccurate and needs repeating Microscopic Hematuria, unspecified in the setting of RAYO, rhabdo, other -repeat as OP in a few weeks. Persistent hypokalemia -Will check TTKG to assess for renal wasting in the setting of post RAYO polyuria, other. Random urine K < 10 argues against renal wasting and K level closer to LLN this AM, cont scheduled KCL -Given persistent CPK levels > 10K, had continued aggressive IVF hydration and then polyuric with renal recovery, did order myoglobin level to determine continued need for IVF at high rates as myoglobin is the nephrotoxic agent but must be send out test as no levels reported Checked Vit D as there are reports of deficiency being associated with rhabdo and total Ca is low and level severely reduced and < 10, placed on Vit D3 5000 IU daily TSH ok CPK level a few days was reported as < 10K and then since then has again risen dramatically which is unexpected, while pt has been relatively bed bound over the past few days, unclear if other medications received in recent days (precedex, other) to blame, will discuss with IM Hyperkalemia in the setting of above and rhabdo, resolved and now with hypokalemia -Receiving additional IV KCL today, did switch maintenance IVF to LR. Ordered scheduled PO KCL and Mg. Target Mg > 2.0 Acute rhabdomyolysis -In the setting of illness, Vit D deficiency +/- other, no UDS performed on admission. CPK level a few days was reported as < 10K and then since then has again risen dramatically which is unexpected, while pt has been relatively bed bound over the past few days, unclear if other medications received in recent days (precedex, other) to blame, will discuss with IM Underlying metabolic myopathy unlikely as no prior reports but will order additional testing including considering for polymyositis Chronic HTN -BP has trended up mod, will avoid CCB given potential for drug induced myopathy, will use ARB agent with his lower K levels
[2024-09-14 10:33] LABS: C-Reactive Protein 6.41 mg/L (<3.00)
[2024-09-14 12:21] LABS: Hepatitis B Core IgM Nonreactive (Nonreactive); Hepatitis B surface AG Interp. Reactive (Nonreactive); Hepatitis C Virus Ab Nonreactive (Nonreactive)
[2024-09-14] MEDS: NACHLORIDE 0.45% 1,000 ML with POTASSIUM CL 20 MEQ IV SCH (12:22)
[2024-09-14 12:23] LABS: HBsAG High Reactive Report Report
--- NOTE | 2024-09-14 12:33 | P.PN ---
Subjective Date of Service: 09/14/24 Chief Complaint: AMS, pneumonia Patient reports generalized weakness, otherwise he has no new complain. Physical Examination - Vital Signs Temperature: 98 F Blood Pressure: 147/75 Pulse: 68 Respirations: 15 Pulse Ox (%): 98 Assessment And Plan - Plan Physical Exam: GEN: Alert, orientedx3, NAD. CV: Normal rate and regular rhythm, no murmur Pulm: Clear to auscultation bilaterally, adequate breath sounds bilaterally. ABD: soft, nontender, nondistended. Extremities: Trace bilateral lower extremity pitting edema Diagnosis Severe sepsis secondary to acute influenza A+ Metabolic encephalopathy secondary to above Acute Rhabdomyolysis RAYO, resolved Hyperkalemia secondary to rhabdo Hypophosphatemia Transaminitis NIDDM2 chronic [facility] EF Hypertension Plan: Severe sepsis secondary to acute influenza A+ Metabolic encephalopathy secondary to above Patient tested positive for influenza A 09/04 CXR (09/04): mild interstitial prominence L > R, likely related to infection. CT head (09/04) negative; CT abd (09/04) noted fatty liver otherwise negative. Patient was on empiric IV cefepime / levaquin for possible secondary bacterial pneumonia. Blood cx (09/04): no growth. s/p lumbar puncture (09/04): culture without growth Sepsis resolved. Patient completed 7 days of antibiotics. Antibiotics discontinued. off precedex since 09/06. AMS resolved Dr. Joy pulmonary evaluated and assisted with management. Patient is now ambulating independently. Acute Rhabdomyolysis RAYO, resolved Hyperkalemia secondary to rhabdo Hypophosphatemia Acute rhabdomyolysis likely secondary to severe influenza infection. Nephrology is following. CK level has been fluctuating and still significantly elevated. Myoglobin also significantly elevated and levels correlate with CK levels. Concern for underlying myopathy or myositis versus immobility or drug-induced rhabdomyolysis. Hepatitis viral panel ordered, HIV ordered, including aldolase and autoimmune screening. Continue IV fluid. Monitor CK daily. RAYO resolved and renal function has been stable despite wide fluctuations in CK levels. Patient is requesting to go home Nephrology is considering outpatient follow-up with renal function and CK levels. Continue to monitor renal function. Transaminitis CT abdomen pelvis performed negative for acute findings Elevated LFTs likely related to elevated CK. Monitor levels. NIDDM2 chronic [facility] EF Hypertension Patient noncompliant with medication for at least the last few months per Insulin sliding scale. Continue losartan and amlodipine for hypertension Hypokalemia Nephrology is following. Replace potassium as needed. VTE: heparin sq Code: Full Dispo: Home.
[2024-09-14] MEDS ORDERED: NA CHLORIDE 0.9% 1,000 ML with POTASSIUM CL 20 MEQ IV SCH (13:01)
[2024-09-14] MEDS ORDERED: POTASSIUM CHLORIDE-0.45% NACL 20 MEQ/1,000 ML BAG IV SCH (13:01)
[2024-09-14 14:22] VITALS: O2SAT 98
[2024-09-15 05:56] VITALS: BMI 38.3
[2024-09-15 06:26] LABS: Albumin 3.2 g/dL (3.4-5.0); Anion Gap 7.6 mEq/L (5.0-15.0); Phosphorus 4.3 mg/dL (2.5-4.9); Potassium 3.6 mEq/L (3.5-5.1)
[2024-09-15] MEDS: POTASSIUM CL SA 10 MEQ TAB PO ONE (08:28)
[2024-09-15 08:33] VITALS: BP 143/83
--- NOTE | 2024-09-15 08:52 | P.DS ---
Admission Date: 09/04/24 Discharge Date: 09/15/24 Disposition: ROUTINE DISCHARGE Discharge Condition: FAIR Reason for Admission: AMS, pneumonia Brief History of Present Illness: 39-year-old male with history of diabetes, hypertension, presented to emergency department chief complaint of altered mental status. His reported that over the course of the last 24 to 36 hours he had profuse diarrhea, vomiting and and then became confused. He was incontinent of urine and stool. When he arrived to the emergency department he was lethargic, confused, oriented x 1-2. His labs were significant for a white blood cell count of 10.1 platelets 113 sodium 135 creatinine 1.75 GFR 50 glucose 179 lactic acid 3.4 AST 386 ALT [address] of the abdomen pelvis was performed which revealed no acute or concerning abnormalities in the abdomen or pelvis, does show fatty liver. CT of the head was negative for acute findings, chest x-ray showed mild interstitial prominence greatest in the left upper lobe likely related to infect ion. Given patient's significant altered mental status and lack of clear explanation lumbar puncture was also performed, spinal fluid was clear. Patient was hospitalized for further management. Hospital Course: Diagnosis Severe sepsis secondary to acute influenza A+ Metabolic encephalopathy secondary to above Acute Rhabdomyolysis RAYO, resolved Hyperkalemia secondary to rhabdo Hypophosphatemia Transaminitis NIDDM2 chronic CHFunknown EF Hypertension Plan: Severe sepsis secondary to acute influenza A+ Metabolic encephalopathy secondary to above Patient tested positive for influenza A 09/04 CXR (09/04): mild interstitial prominence L > R, likely related to infection. CT head (09/04) negative; CT abd (09/04) noted fatty liver otherwise negative. Patient was on empiric IV cefepime / levaquin for possible secondary bacterial pneumonia. Blood cx (09/04): no growth. s/p lumbar puncture (09/04): culture without growth Sepsis resolved. Patient completed 7 days of antibiotics. Antibiotics discontinued. He was briefly on precedex for agitation which was later discontinued AMS resolved Dr. Joy pulmonary evaluated and assisted with management. Patient is ambulating independently. Acute Rhabdomyolysis RAOY, resolved Hyperkalemia secondary to rhabdo Hypophosphatemia Acute rhabdomyolysis likely secondary to severe influenza infection. Underlying myopathy/myositis not ruled out Nephrology evaluated patient and assisted with management. [place] [address], levels Fluctuating, and currently down to 9000. Myoglobin also significantly elevated and levels correlated with CK levels. Concern for underlying myopathy or myositis versus immobility or drug-induced rhabdomyolysis. Hepatitis viral panel ordered, patient tested positive for hepatitis B surface antigen indicating chronic carrier/infection. HIV was nonreactive, aldolase and autoimmune screening are pending to be followed by follow-up by nephrology as outpatient. Patient treated aggressively with IV fluid RAYO resolved and renal function has been stable despite wide fluctuations in CK levels. Nephrology will follow-up with patient in the office next week for repeat CK level check. Transaminitis CT abdomen pelvis performed negative for acute findings Elevated LFTs likely related to elevated CK. Patient also tested positive for hepatitis B surface antigen. He is informed to follow-up with GI Dr. Mcneil as outpatient to evaluate for possible treatment. Monitor levels. NIDDM2 chronic CHFunknown EF Hypertension Patient noncompliant with medication for at least the last few months per Patient was placed on insulin sliding scale by he barely needed insulin coverage. Continued losartan and amlodipine for hypertension during the hospital stay. Nephrology recommended losartan only for BP control for now given the possibility of drug-induced rhabdomyolysis and avoiding amlodipine which is calcium channel melissa for now. Hypokalemia Nephrology is following. Potassium was replaced. Vital Signs/Physical Exam: Temp Pulse Resp BP Pulse Ox 97.9 F 66 18 143/83 H 96 09/15/24 04:00 09/15/24 08:28 09/15/24 04:00 09/15/24 08:28 09/15/24 04:00 General: Alert, In no apparent distress, Oriented x3 HEENT: Mucous membr. moist/pink, Sclerae nonicteric Neck: Supple, JVD not distended Respiratory: Clear to auscultation bilaterally, Normal air movement Cardiovascular: No edema, Regular rate/rhythm, Normal S1 S2 Gastrointestinal: Normal bowel sounds, Soft and benign, Non-distended, No tenderness Musculoskeletal: No swelling, No tenderness Integumentary: No rashes, No cyanosis Neurological: Normal speech, Normal strength at 5/5 x4 extr Laboratory Data at Discharge: WBC 5.00 thou/uL (4.3-10.9) 09/11/24 04:44 Hgb 11.0 g/dL (13.6-17.9) L 09/11/24 04:44 Hct 32.6 % (39.6-49.0) L 09/11/24 04:44 Plt Count 107 thou/uL (152-406) L D 09/11/24 04:44 PT 12.6 SECONDS (9.4-12.5) H 09/06/24 06:20 INR 1.13 09/06/24 06:20 APTT 34.6 SECONDS (24.3-36.9) 09/06/24 06:20 Sodium 142 mEq/L (136-145) 09/15/24 05:50 Potassium 3.6 mEq/L (3.5-5.1) 09/15/24 05:50 BUN 7 mg/dL (7-18) 09/15/24 05:50 Creatinine 0.84 mg/dL (0.70-1.30) 09/15/24 05:50 Glucose 102 mg/dL (74-106) 09/15/24 05:50 Uric Acid 8.3 mg/dL (3.5-7.2) H 09/06/24 06:20 Phosphorus 4.3 mg/dL (2.5-4.9) 09/15/24 05:50 Magnesium 1.9 mg/dL (1.6-2.4) 09/14/24 05:03 Total Bilirubin 0.5 mg/dL (0.2-1.0) 09/11/24 04:44 AST 369 U/L (15-37) H 09/11/24 04:44 ALT 72 U/L (16-61) H 09/11/24 04:44 Alkaline Phosphatase 35 U/L (45-117) L 09/11/24 04:44 Home Medications: NK [No Home Meds] 09/04/24 Cholecalciferol (Vitamin D3) [Vitamin D 5,000 IU Cap*] 5,000 unit PO DAILY #30 cap 09/15/24 Losartan Potassium [Cozaar*] 50 mg PO BID #60 tab 09/15/24 Thiamine HCl [Vitamin B-1*] 100 mg PO DAILY #30 tab 09/15/24 New Medications: Losartan Potassium [Cozaar*] 50 mg PO BID #60 tab Thiamine HCl [Vitamin B-1*] 100 mg PO DAILY #30 tab Cholecalciferol (Vitamin D3) [Vitamin D 5,000 IU Cap*] 5,000 unit PO DAILY #30 cap Diet: ADA Activity: Ad andrews Followup: NONE,NONE [Primary Care Provider] - Eligio Pettit [ACTIVE - CAN ADMIT] - 1 Week (For repeat labs and BP check) Alejandro Mcneil MD [ACTIVE - CAN ADMIT] - 1-2 Weeks (For evaluation for hepatitis B treatment) Time spent managing pt's care (in minutes): 38
[2024-09-15 09:59] VITALS: TEMP 98
[2024-09-18 15:02] LABS: Anti-Nuclear Antibody Screen Negative (Negative)
[2024-09-19 03:57] LABS: Aldolase 119.9 U/L (<=8.1)
== END 2024-09-15 10:56 | disposition home or self-care (01) | DRG 871 ==
LOC: ER 09:59 → ERHOLD 16:36 → 3RD-ICU 17:16 → 2ND 09-11 18:40
PROVIDERS: ADMIT Hospitalist; ATTEND Internal Medicine
PROC: 0T9B70Z Drainage of Bladder with Drainage Device, Via Natural or Artificial Opening (ICD-10-PCS; 2024-09-04)
PROC: 009U3ZX Drainage of Spinal Canal, Percutaneous Approach, Diagnostic (ICD-10-PCS; 2024-09-04)
PROC: 02HV33Z Insertion of Infusion Device into Superior Vena Cava, Percutaneous Approach (ICD-10-PCS; principal; 2024-09-05)
DX: A41.89 Other specified sepsis (principal); G92.8 Other toxic encephalopathy; J10.08 Influenza due to other identified influenza virus with other specified pneumonia; J15.9 Unspecified bacterial pneumonia; N17.9 Acute kidney failure, unspecified; E87.1 Hypo-osmolality and hyponatremia; M62.82 Rhabdomyolysis; I13.0 Hypertensive heart and chronic kidney disease with heart failure and stage 1 through stage 4 chronic kidney disease, or unspecified chronic kidney disease; R65.20 Severe sepsis without septic shock; E87.5 Hyperkalemia; I50.9 Heart failure, unspecified; N18.9 Chronic kidney disease, unspecified; E11.22 Type 2 diabetes mellitus with diabetic chronic kidney disease; D63.1 Anemia in chronic kidney disease; K76.0 Fatty (change of) liver, not elsewhere classified; E83.39 Other disorders of phosphorus metabolism; R79.89 Other specified abnormal findings of blood chemistry; R74.01 Elevation of levels of liver transaminase levels; R31.29 Other microscopic hematuria; Z78.1 Physical restraint status; Z74.01 Bed confinement status; Z91.148 Patient's other noncompliance with medication regimen for other reason; Z79.899 Other long term (current) drug therapy
CPT/HCPCS: 36415; 36569; 51702; 62270; 70450; 71045; 74176; 80048; 80053; 80069; 80074; 80202; 81001; 82043; 82077; 82085; 82306; 82550; 82570; 82947; 83605; 83615; 83735; 83874; 83930; 83935; 84100; 84132; 84145; 84156; 84439; 84443; 84550; 85025; 85610; 85730; 86038; 86140; 87040; 87070; 87389; 87804; 87811; 89050; 93005; 94640; 94760; 96361; 96365; 96368; 96375; 97116; 97161; 97530; 99291; 99292; J0692; J0696; J1644; J1720; J1940; J2270; J3411; J3475; J3480; J7030; J7040; J7050; J7120; J7613